=== PATIENT | female | born 1965 | race Caucasian/White ===

== ENCOUNTER 2017-02-20 20:41 | Emergency (ER) | payer BC ==
[2017-02-20 22:26] LABS: Hematocrit 41 % (35-47); Hemoglobin 13.8 g/dl (12.0-16.0); Mean Corpuscular HGB Conc 34 g/dl (31-36); Mean Corpuscular Hemoglobin 30 pg (27-31); Mean Corpuscular Volume 87 fL (80-97); Mean Platelet Volume 11 um3 (7.4-10.4); Red Blood Count 4.66 10^6/ul (4.0-5.4); Red Cell Distribution Width 14 % (10.5-15); White Blood Count 9.1 10^3/ul (3.5-10.8)
[2017-02-20 22:44] LABS: Troponin I 0.01 ng/mL (<0.04)
[2017-02-20 22:47] LABS: BUN/Creatinine Ratio 10.6 (8-20); Calcium 9.8 mg/dL (8.6-10.3); EGFR African American 80.7 (>60); EGFR Non-African American 62.8 (>60); Globulin 3.9 g/dL (2-4); Potassium 3.1 mmol/L (3.5-5.0); Total Bilirubin 0.4 mg/dL (0.2-1.0); Total Protein 7.9 g/dL (6.4-8.9)
[2017-02-20] MEDS ORDERED: Potassium Chlor TAB* 20 MEQ TAB.ER PO ONE (23:03)
[2017-02-20 23:17] VITALS: BP 145/97
--- NOTE | 2017-02-21 04:21 | ED ---
Gigi Thomas Rebecca, scribed for Taylor Burnetteuel on 02/20/17 at 2135 . Complex/Multi-Sys Presentation - HPI Summary HPI Summary: Pt is a 51 y/o F who presents to ED c/o RUE and R foot tingling s/p electric shock. At 2014 tonight while screwing in a light bulb with the R hand and standing in water, the bulb blew, causing her to receive an electric shock. Tingling began immediately after incident and has been constant since onset. Additionally c/o mild CP. Denies palpitations. Sx aggravated and alleviated by nothing. No PMHx PA. - History Of Current Complaint Chief Complaint: EDGeneral Time Seen by Provider: 02/20/17 21:32 Hx Obtained From: Patient Onset/Duration: Sudden Onset, Still Present Timing: Constant Severity Currently: Mild Severity Initially: Mild Location: Pain At: - Chest pain Aggravating Factor(s): Nothing Alleviating Factor(s): Nothing Associated Signs And Symptoms: Positive: Other - RUE and R foot tingling - Allergies/Home Medications Allergies/Adverse Reactions: Allergies Allergy/AdvReac Type Severity Reaction Status Date / Time No Known Allergies Allergy Verified 02/20/17 20:46 PMH/Surg Hx/FS Hx/Imm Hx Endocrine/Hematology History: Denies: Hx Diabetes Cardiovascular History: Reports: Hx Hypertension - ON MEDS Denies: Hx Congestive Heart Failure, Hx Myocardial Infarction, Hx Pacemaker/ ICD History: Denies: Hx Renal Disease Sensory History: Denies: Hx Contacts or Glasses, Hx Hearing Aid Opthamlomology History: Denies: Hx Contacts or Glasses Psychiatric History: Denies: Hx Panic Disorder - Surgical History Surgery Procedure, Year, and Place: cholecystectomy; uterine ablasion Infectious Disease History: Denies: Traveled Outside the [place] in Last 30 Days - Family History Known Family History: Positive: Hypertension - Brother - Social History Alcohol Use: Rare Substance Use Type: Reports: None Smoking Status (MU): Never Smoked Tobacco Review of Systems Positive: Chest Pain - mild CP s/p electric shock. Negative: Palpitations Neurological: Other - RUE and R foot tingling s/p electric shock All Other Systems Reviewed And Are Negative: Yes Physical Exam Triage Information Reviewed: Yes Vital Signs On Initial Exam: Initial Vitals Temp Pulse Resp BP Pulse Ox 98.2 F 89 16 141/100 98 02/20/17 20:46 02/20/17 20:46 02/20/17 20:46 02/20/17 20:46 02/20/17 20:46 Vital Signs Reviewed: Yes Appearance: Positive: Well-Appearing, No Pain Distress Skin: Positive: Warm, Skin Color Reflects Adequate Perfusion, Dry Head/Face: Positive: Normal Head/Face Inspection Eyes: Positive: EOMI, FERDINAND ENT: Positive: Normal ENT inspection Neck: Positive: Supple, Nontender Respiratory/Lung Sounds: Positive: Clear to Auscultation, Breath Sounds Present Cardiovascular: Positive: RRR, Pulses are Symmetrical in both Upper and Lower Extremities Abdomen Description: Positive: Nontender, Soft Bowel Sounds: Positive: Present Musculoskeletal: Positive: Normal, Strength/ROM Intact Neurological: Positive: Normal, Sensory/Motor Intact, Alert, Oriented to Person Place, Time Diagnostics - Vital Signs Vital Signs Temp Pulse Resp BP Pulse Ox 02/20/17 20:46 98.2 F 89 16 141/100 98 - Laboratory Result Diagrams: 02/20/17 22:15 02/20/17 22:15 Lab Statement: Any lab studies that have been ordered have been reviewed, and results considered in the medical decision making process. - Radiology CXR Xray Interpretation: No Acute Changes Radiology Interpretation Completed By: ED Physician - EKG 2201 Cardiac Rate: NL - 80 bpm EKG Rhythm: Sinus Rhythm EKG Interpretation: No acute changes. Re-Evaluation - Re-Evaluation First Eval Re-Evaluation Time: 23:18 Change: Improved Comment: Pt is doing well. Discussed lab and imaging results and D/C plan with pt. Complex Multi-Symp Course/Dx Assessment/Plan: Pt is a 51 y/o F who presents to ED c/o mild CP and RUE and R foot tingling s/p electric shock. At 2015 tonight while screwing in a light bulb with the R hand and standing in water, the bulb blew, causing her to receive an electric shock. Sx began immediately after incident and has been constant since onset. Denies palpitations. No PMHx PA. EKG and CXR reveal no acute changes. She will be D/C to home with Dx of electric shock to right hand. She understands and agrees. Patient medications reviewed this visit. - Diagnoses Provider Diagnoses: Electric shock to right hand Discharge - Discharge Plan Condition: Stable Disposition: HOME Referrals: Bharat Rinaldi MD [Primary Care Provider] - 3 Days The documentation as recorded by the Gigi baca Rebecca accurately reflects the service I personally performed and the decisions made by Vasile martins Emmanuel.
--- NOTE | 2017-02-21 07:26 | RAD ---
INDICATION: Chest pain. COMPARISON: Comparison is made with a prior study from October 28, 2009. TECHNIQUE: A portable view of the chest was obtained. FINDINGS: Cardiac and mediastinal contours appear to be within normal limits. The lungs are clear. No pleural effusion is seen. IMPRESSION: NO EVIDENCE FOR ACUTE DISEASE.
== END 2017-02-20 23:57 | disposition home or self-care (01) ==
LOC: ED 20:41
DX: T75.4XXA Electrocution, initial encounter (principal); R07.9 Chest pain, unspecified; W86.8XXA Exposure to other electric current, initial encounter; Y93.9 Activity, unspecified; Y92.9 Unspecified place or not applicable
CPT/HCPCS: 36415; 71010; 80053; 82550; 84484; 85025; 93005; 99283; A9270-GY

== ENCOUNTER 2019-02-19 00:49 | Emergency (ER) | payer BC ==
[2019-02-19 04:33] VITALS: BP 146/96
--- NOTE | 2019-02-19 07:04 | ED ---
Bite Injury/Animal - HPI Summary HPI Summary: 53 year old F presents to [facility] with a chief complaint of concern of a bat bite since this morning (02/18/19). Patient reports she saw bats in her house 02/15/19 morning at 0500 after which she tried to turn the lights on to deter them away but it did not stop them from entering her house. Patient does not know if she was touched by the bat or not but as far as she is concerned she does not think she has been. However, she is concerned that she was bitten as she feels a hotness in her left leg during her sleep. Patient lives alone in [facility]. Symptoms aggravated by nothing. Symptoms alleviated by nothing. - History of Current Complaint Chief Complaint: EDAnimalBite Stated Complaint: POSS BITTEN BY BAT PER PT Hx Obtained From: Patient Onset of Injury: Still Present Type of Bite: Wild Animal Pain Intensity: 0 Pain Scale Used: 0-10 Numeric Aggravating Factor(s): Nothing Alleviating Factor(s): Nothing - Allergies/Home Medications Allergies/Adverse Reactions: Allergies Allergy/AdvReac Type Severity Reaction Status Date / Time No Known Allergies Allergy Verified 02/19/19 00:59 PMH/Surg Hx/FS Hx/Imm Hx Endocrine/Hematology History: Denies: Hx Diabetes Cardiovascular History: Reports: Hx Hypertension - ON MEDS Denies: Hx Congestive Heart Failure, Hx Myocardial Infarction, Hx Pacemaker/ ICD History: Denies: Hx Renal Disease Sensory History: Denies: Hx Contacts or Glasses, Hx Hearing Aid Opthamlomology History: Denies: Hx Contacts or Glasses Psychiatric History: Denies: Hx Panic Disorder - Cancer History Hx Chemotherapy: No Hx Radiation Therapy: No - Surgical History Surgery Procedure, Year, and Place: cholecystectomy and ERCP; uterine ablasion Infectious Disease History: No Infectious Disease History: Denies: Traveled Outside the in Last 30 Days - Family History Known Family History: Positive: Hypertension - Brother - Social History Alcohol Use: Rare Substance Use Type: Reports: None Smoking Status (MU): Never Smoked Tobacco Review of Systems Negative: Fever Positive: Other - (-): abrasion All Other Systems Reviewed And Are Negative: Yes Physical Exam - Summary Physical Exam Summary: VITAL SIGNS: Reviewed. GENERAL: Patient is a well-developed and nourished FEMALE who is lying comfortable in the stretcher. Patient is not in any acute respiratory distress. HEAD AND FACE: No signs of trauma. No ecchymosis, hematomas or skull depressions. No sinus tenderness. EYES: PERRLA, EOMI x 2, No injected conjunctiva, no nystagmus. EARS: Hearing grossly intact. Ear canals and tympanic membranes are within normal limits. MOUTH: Oropharynx within normal limits. NECK: Supple, trachea is midline, no adenopathy, no JVD, no carotid bruit, no c- spine tenderness, neck with full ROM CHEST: Symmetric, no tenderness at palpation LUNGS: Clear to auscultation bilaterally. No wheezing or crackles. CVS: Regular rate and rhythm, S1 and S2 present, no murmurs or gallops appreciated. ABDOMEN: Soft, non-tender. No signs of distention. No rebound no guarding, and no masses palpated. Bowel sounds are normal. EXTREMITIES: FROM in all major joints, no edema, no cyanosis or clubbing. NEURO: Alert and oriented x 3. No acute neurological deficits. Speech is normal and follows commands. SKIN: Dry and warm Triage Information Reviewed: Yes Vital Signs On Initial Exam: Initial Vitals Temp Pulse Resp BP Pulse Ox 97.9 F 99 20 156/107 98 02/19/19 00:53 02/19/19 00:53 02/19/19 00:53 02/19/19 00:53 02/19/19 00:53 Vital Signs Reviewed: Yes Diagnostics - Vital Signs Vital Signs Temp Pulse Resp BP Pulse Ox 02/19/19 03:30 98.2 F 90 16 146/96 96 02/19/19 00:53 97.9 F 99 20 156/107 98 - Laboratory Lab Statement: Any lab studies that have been ordered have been reviewed, and results considered in the medical decision making process. Bite Injury Course/Dx - Course Course Of Treatment: 53 year old F presents to [facility] with a chief complaint of concern of a bat bite since this morning (02/18/19). Patient reports she saw bats in her house 02/15/19 morning at 0500 after which she tried to turn the lights on to deter them away but it did not stop them from entering her house. Patient does not know if she was touched by the bat or not but as far as she is concerned she does not think she has been. However, she is concerned that she was bitten as she feels a hotness in her left leg during her sleep. Patient doesnt have any abrasion or cuts. Physician discussed discharge with patient who agrees with discharge. Patient was advised to meet with the health department regarding the management of the rabies vaccine. Patient understands. - Diagnoses Provider Diagnosis: Exposure to bat without known bite Discharge - Sign-Out/Discharge Documenting (check all that apply): Patient Departure - discharge Patient Received Moderate/Deep Sedation with Procedure: No - Discharge Plan Condition: Stable Disposition: HOME Patient Education Materials: Animal Bite (ED) Referrals: Bharat Rinaldi MD [Primary Care Provider] - - Attestation Statements Document Initiated by Scribe: Yes Documenting Scribe: Essie Markham Provider For Whom Odellibe is Documenting (Include Credential): Kait Luong MD Scribe Attestation: Floyd Thomas Alison Kim, scribed for Kait Luong MD on 02/19/19 at 0710. Status of Scribe Document: Ready
== END 2019-02-19 03:30 | disposition home or self-care (01) ==
LOC: ED 00:49
DX: Z20.3 Contact with and (suspected) exposure to rabies (principal); X58.XXXA Exposure to other specified factors, initial encounter; Y92.009 Unspecified place in unspecified non-institutional (private) residence as the place of occurrence of the external cause; I10 Essential (primary) hypertension; Z79.899 Other long term (current) drug therapy
CPT/HCPCS: 99281

== ENCOUNTER 2019-02-19 12:00 | Emergency (ER) | payer BC ==
[2019-02-19] MEDS ORDERED: Rabies VIRUS VACCINE (Imovax)* 2.5 UNIT/ML 1 ML IM ONE (12:25)
[2019-02-19] MEDS ORDERED: Rabies Immune Globulin 10 ML* 150 UNIT/ML VIAL IM ONE (13:06)
[2019-02-19] MEDS ORDERED: Tetan/Diph/Pertus SYR(Tdap)* 0.5 ML SYR(BOOSTRIX) use SYR IM ONE (13:07)
--- NOTE | 2019-02-19 13:10 | ED ---
Bite Injury/Animal - HPI Summary HPI Summary: 53 year old female presents with bat exposure on . She states she fell a sleep and woke up with the bat in the wound. Unsure if got bit but no known lesions. She has no medical conditions. Unsure of last tetanus is. She called and discussed with health department and told her to get vaccinated here. - History of Current Complaint Chief Complaint: EDAnimalBite Stated Complaint: BAT BITE PER PT Time Seen by Provider: 02/19/19 12:54 Pain Intensity: 3 - Allergies/Home Medications Allergies/Adverse Reactions: Allergies Allergy/AdvReac Type Severity Reaction Status Date / Time No Known Allergies Allergy Verified 02/19/19 00:59 PMH/Surg Hx/FS Hx/Imm Hx Endocrine/Hematology History: Denies: Hx Diabetes Cardiovascular History: Reports: Hx Hypertension - ON MEDS Denies: Hx Congestive Heart Failure, Hx Myocardial Infarction, Hx Pacemaker/ ICD History: Denies: Hx Renal Disease Sensory History: Denies: Hx Contacts or Glasses, Hx Hearing Aid Opthamlomology History: Denies: Hx Contacts or Glasses Psychiatric History: Denies: Hx Panic Disorder - Cancer History Hx Chemotherapy: No Hx Radiation Therapy: No - Surgical History Surgery Procedure, Year, and Place: cholecystectomy and ERCP; uterine ablasion Infectious Disease History: No Infectious Disease History: Denies: Traveled Outside the [place] in Last 30 Days - Family History Known Family History: Positive: Hypertension - Brother - Social History Alcohol Use: Rare Substance Use Type: Reports: None Smoking Status (MU): Never Smoked Tobacco Review of Systems Negative: Fever Negative: Chest Pain Negative: Shortness Of Breath Positive: Other - no bite, bat exposure All Other Systems Reviewed And Are Negative: Yes Physical Exam Triage Information Reviewed: Yes Vital Signs On Initial Exam: Initial Vitals Temp Pulse Resp BP Pulse Ox 98.3 F 96 18 126/93 96 02/19/19 12:02 02/19/19 12:02 02/19/19 12:02 02/19/19 12:02 02/19/19 12:02 Vital Signs Reviewed: Yes Appearance: Positive: Well-Appearing Skin: Positive: Warm, Dry, Other - no bite noted Head/Face: Positive: Normal Head/Face Inspection Eyes: Positive: Normal, Conjunctiva Clear ENT: Positive: Pharynx normal Respiratory/Lung Sounds: Positive: Clear to Auscultation, Breath Sounds Present Cardiovascular: Positive: Normal, RRR Musculoskeletal: Positive: Normal Neurological: Positive: Normal Psychiatric: Positive: Normal Diagnostics - Vital Signs Vital Signs Temp Pulse Resp BP Pulse Ox 02/19/19 12:02 98.3 F 96 18 126/93 96 - Laboratory Lab Statement: Any lab studies that have been ordered have been reviewed, and results considered in the medical decision making process. Bite Injury Course/Dx - Course Course Of Treatment: 53 year old female presents with bat exposure on . She states she fell a sleep and woke up with the bat in the wound. Unsure if got bit but no known lesions. She has no medical conditions. Unsure of last tetanus is. She called and discussed with health department and told her to get vaccinated here. On exam no bite noted. gave tetanus, immunogloblin and vaccine. Told follow-up with health department. Patient understands and agrees plan. - Diagnoses Provider Diagnosis: Exposure to bat without known bite Discharge - Sign-Out/Discharge Documenting (check all that apply): Patient Departure Patient Received Moderate/Deep Sedation with Procedure: No - Discharge Plan Condition: Good Disposition: HOME Patient Education Materials: Rabies Vaccine (ED) Referrals: Bharat Rinaldi MD [Primary Care Provider] - Additional Instructions: follow up with health department at day 3, 7, 14 Return to ED if develop any new or worsening symptoms - Billing Disposition and Condition Condition: GOOD Disposition: Home
[2019-02-19 14:00] VITALS: BP 164/111
[2019-02-19] MEDS ORDERED: Rabies Immune Globulin/PF 1ML* 1 ML/300 UNITS VIAL IM ONE (14:00)
== END 2019-02-19 14:00 | disposition home or self-care (01) ==
LOC: ED 12:00
DX: Z20.3 Contact with and (suspected) exposure to rabies (principal); Z23 Encounter for immunization; I10 Essential (primary) hypertension; X58.XXXA Exposure to other specified factors, initial encounter; Y92.9 Unspecified place or not applicable
CPT/HCPCS: 90375; 90471; 90715; 96372; 99282

== ENCOUNTER 2019-02-21 06:59 | Emergency (ER) | payer BC ==
[2019-02-21 08:49] LABS: Rapid Strep Molecular Negative (Negative)
--- NOTE | 2019-02-21 10:13 | ED ---
Progress - Progress Note Progress Note: Seeing patient at request of REJI Griggs. This patient is a 53 year old female presenting to [facility] with a chief complaint of possible bat bite. The patient was here for the same reason one week ago, and received the post- exposure prophylaxis. The patient complains of erythema in her eyes. The patient woke up to a bat in her room, then saw another one when she came home that day and had it fly out of the house. The patient talked to the health department on 02/13/19 and was approved for the prophylaxis by the health department. She reports tingling in her legs, sore throat, cough. Physical Exam - Summary Physical Exam Summary: Appearance: Ill-appearing, moderate pain distress, well-nourished Skin: Warm, color reflects adequate perfusion, dry Head: Normal Head/Face inspection, atraumatic Eyes: Conjunctiva clear ENT: Normal inspection Neck: Supple, no nodes, no JVD Respiratory: Lungs clear, normal breath sounds, no respiratory distress Cardio: RRR, No murmur, pulses normal, brisk capillary refill Abdomen: Soft, nontender Bowel sounds: Present Musculoskeletal: Strength Intact/ROM intact, no calf tenderness, no edema. Psychological: Normal Neuro: Alert, muscle tone normal, no focal deficit Triage Information Reviewed: Yes Vital Signs On Initial Exam: Initial Vitals Temp Pulse Resp BP Pulse Ox 97.8 F 116 16 151/116 96 02/21/19 07:04 02/21/19 07:04 02/21/19 07:04 02/21/19 07:04 02/21/19 07:04 Vital Signs Reviewed: Yes Course/Dx - Course Course Of Treatment: Seeing patient at request of REJI Griggs. This patient is a 53 year old female presenting to [facility] with a chief complaint of possible bat bite. The patient was here for the same reason one week ago, and received the post-exposure prophylaxis. The patient complains of erythema in her eyes. The patient woke up to a bat in her room, then saw another one when she came home that day and had it fly out of the house. The patient talked to the health department on 02/13/19 and was approved for the prophylaxis by the health department. She reports tingling in her legs, sore throat, cough, erythema in her eyes. ED Provider instructed PA to give patient anti- inflammatory eye drops to treat viral conjuctivitis. - Diagnoses Provider Diagnoses: Need for post exposure prophylaxis for rabies, Viral syndrome, Viral conjunctivitis Discharge - Discharge Plan Condition: Good Disposition: HOME Patient Education Materials: Upper Respiratory Infection (ED), Rabies (ED) Referrals: Bharat Rinaldi MD [Primary Care Provider] - Additional Instructions: Follow up with [facility] for schedule rabies vaccination tomorrow, 02/22/19 , at 7:00am Can try over the counter eye drops for irritation: Zaditor as directed Return to ER if symptoms change or worsen - Attestation Statements Document Initiated by Scribe: Yes Documenting Scribe: Cameron Lopez Provider For Whom Scribe is Documenting (Include Credential): Thuy Knott MD Scribe Attestation: Cameron Thomas, scribed for Thuy Knott MD on 02/21/19 at 1048. Status of Scribe Document: Ready
[2019-02-21] MEDS ORDERED: Fluorescein Sodium TOPICAL* 1 MG TEST STRIP OPHTHALMIC ONE (10:27)
[2019-02-21 11:08] VITALS: BP 132/94
--- NOTE | 2019-02-21 17:16 | ED ---
Complex/Multi-Sys Presentation - HPI Summary HPI Summary: Pt. is a 53 y.o female who presents to the ER for re-evaluation after a possible exposure. Pt. states on Saturday, 6 days ago, she discovered bats in her house. Pt. felt some irritation to her left lower leg and was concerned she was bit in her sleep. Pt. was seen in the ER 02/19 and started on rabies prophylaxis per health department. Pt. states she is concerned she has a rabies prodrome and has not been feeling well all week. Pt. c/o eye irritation/redness and a sore throat. No other past hx. Sxs are mild in severity. No current modifying factors. - History Of Current Complaint Chief Complaint: EDAnimalBite Time Seen by Provider: 02/21/19 07:38 Hx Obtained From: Patient - Allergies/Home Medications Allergies/Adverse Reactions: Allergies Allergy/AdvReac Type Severity Reaction Status Date / Time No Known Allergies Allergy Verified 02/21/19 07:07 Home Medications: Home Medications Omeprazole 40 mg PO DAILY 02/21/19 [History Confirmed 02/21/19] PMH/Surg Hx/FS Hx/Imm Hx Previously Healthy: Yes Endocrine/Hematology History: Denies: Hx Diabetes Cardiovascular History: Reports: Hx Hypertension - ON MEDS Denies: Hx Congestive Heart Failure, Hx Myocardial Infarction, Hx Pacemaker/ ICD History: Denies: Hx Renal Disease Sensory History: Denies: Hx Contacts or Glasses, Hx Hearing Aid Opthamlomology History: Denies: Hx Contacts or Glasses Psychiatric History: Denies: Hx Panic Disorder - Cancer History Hx Chemotherapy: No Hx Radiation Therapy: No - Surgical History Surgery Procedure, Year, and Place: cholecystectomy and ERCP; uterine ablasion Infectious Disease History: No Infectious Disease History: Denies: Traveled Outside the [place] in Last 30 Days - Family History Known Family History: Positive: Hypertension - Brother, Non-Contributory - Social History Occupation: Employed Full-time Lives: Alone Alcohol Use: Occasionally Substance Use Type: Reports: None Smoking Status (MU): Never Smoked Tobacco Review of Systems Constitutional: Negative Negative: Fever, Chills Positive: Drainage, Erythema Positive: Sore Throat Cardiovascular: Negative Negative: Palpitations, Chest Pain Positive: Cough. Negative: Shortness Of Breath Gastrointestinal: Negative Genitourinary: Negative Positive: Other - tingling to left lower leg Skin: Negative Neurological: Negative All Other Systems Reviewed And Are Negative: Yes Physical Exam - Summary Physical Exam Summary: Appearance: Ill-appearing, moderate pain distress, well-nourished Skin: Warm, color reflects adequate perfusion, dry Head: Normal Head/Face inspection, atraumatic Eyes: Conjunctiva clear ENT: Normal inspection Neck: Supple, no nodes, no JVD Respiratory: Lungs clear, normal breath sounds, no respiratory distress Cardio: RRR, No murmur, pulses normal, brisk capillary refill Abdomen: Soft, nontender Bowel sounds: Present Musculoskeletal: Strength Intact/ROM intact, no calf tenderness, no edema. Psychological: Normal Neuro: Alert, muscle tone normal, no focal deficit Triage Information Reviewed: Yes Vital Signs On Initial Exam: Initial Vitals Temp Pulse Resp BP Pulse Ox 97.8 F 116 16 151/116 96 02/21/19 07:04 02/21/19 07:04 02/21/19 07:04 02/21/19 07:04 02/21/19 07:04 Vital Signs Reviewed: Yes Appearance: Positive: Well-Appearing - Pt. sitting on bed. Anxious. Skin: Positive: Warm, Dry Head/Face: Positive: Normal Head/Face Inspection Eyes: Positive: Normal, EOMI, FERDINAND, Conjunctiva Clear. Negative: Discharge ENT: Positive: TMs normal, Other - Mild erythema to oral pharynx without tonsilar edema or exudates. Neck: Positive: Supple Respiratory/Lung Sounds: Positive: Clear to Auscultation, Breath Sounds Present. Negative: Rales, Rhonchi, Wheezes Cardiovascular: Positive: Normal, RRR Musculoskeletal: Positive: Normal, Strength/ROM Intact, Other - No wounds, erythema, or edema to left lower leg. Neurological: Positive: Normal, CN Intact II-III Psychiatric: Positive: Affect/Mood Appropriate Diagnostics - Vital Signs Vital Signs Temp Pulse Resp BP Pulse Ox 02/21/19 11:07 97.4 F 83 16 132/94 96 02/21/19 07:04 97.8 F 116 16 151/116 96 - Laboratory Lab Results: Lab Results 02/21/19 Range/Units 08:34 Group A Strep Rapid Negative (Negative) Lab Statement: Any lab studies that have been ordered have been reviewed, and results considered in the medical decision making process. Complex Multi-Symp Course/Dx Course Of Treatment: Pt. presenting with concerns she has rabies. Exam is unremarkable. Pt. examined by Dr. Knott as well who recommended rapid strep which was negative and examing eyes with fluorescein stain and guerrero lamp. Exam showed punctate update to right eye that looks like dry eyes. No FB noted. Pt. feeling better after reassurance. She has apt. with [facility] tomorrow for day 3 of rabies vaccine. Will return to ER if symptoms change or worsn. - Diagnoses Provider Diagnoses: Need for post exposure prophylaxis for rabies, Viral syndrome, Viral conjunctivitis Discharge - Sign-Out/Discharge Documenting (check all that apply): Patient Departure Patient Received Moderate/Deep Sedation with Procedure: No - Discharge Plan Condition: Good Disposition: HOME Patient Education Materials: Upper Respiratory Infection (ED), Rabies (ED) Referrals: Bharat Rinaldi MD [Primary Care Provider] - Additional Instructions: Follow up with [facility] for schedule rabies vaccination tomorrow, 02/22/19 , at 7:00am Can try over the counter eye drops for irritation: Zaditor as directed Return to ER if symptoms change or worsen - Billing Disposition and Condition Condition: GOOD Disposition: Home
== END 2019-02-21 11:07 | disposition home or self-care (01) ==
LOC: ED 06:59
DX: Z20.3 Contact with and (suspected) exposure to rabies (principal); B34.9 Viral infection, unspecified; B30.9 Viral conjunctivitis, unspecified; I10 Essential (primary) hypertension
CPT/HCPCS: 87651; 99282; A9270-GY

== ENCOUNTER 2019-02-22 07:08 | Emergency (ER) | payer BC ==
[2019-02-22] MEDS ORDERED: Rabies VIRUS VACCINE (RabAvert)* 2.5 UNITS VIAL IM ONE (07:22)
[2019-02-22 07:25] VITALS: BP 163/100
--- NOTE | 2019-02-22 07:30 | UC ---
General HPI - HPI Summary HPI Summary: Patient is here for further medical vaccine. Patient has received the 2 previous vaccines without any complications. She has no other complaints. - History of Current Complaint Chief Complaint: UCGeneralIllness Stated Complaint: RABIES Time Seen by Provider: 02/22/19 07:21 Hx Obtained From: Patient Pain Intensity: 0 - Allergy/Home Medications Allergies/Adverse Reactions: Allergies Allergy/AdvReac Type Severity Reaction Status Date / Time No Known Allergies Allergy Verified 02/21/19 07:07 PMH/Surg Hx/FS Hx/Imm Hx Previously Healthy: Yes - Surgical History Surgical History: Yes Surgery Procedure, Year, and Place: cholecystectomy and ERCP; uterine ablasion - Family History Known Family History: Positive: Hypertension - Brother, Non-Contributory - Social History Alcohol Use: Occasionally Substance Use Type: None Smoking Status (MU): Never Smoked Tobacco - Immunization History Most Recent Tetanus Shot: within the last 8 years Review of Systems All Other Systems Reviewed And Are Negative: Yes Constitutional: Positive: Negative Skin: Positive: Negative Eyes: Positive: Negative ENT: Positive: Negative Respiratory: Positive: Negative Cardiovascular: Positive: Negative Gastrointestinal: Positive: Negative Genitourinary: Positive: Negative Motor: Positive: Negative Neurovascular: Positive: Negative Musculoskeletal: Positive: Negative Neurological: Positive: Negative Psychological: Positive: Negative Is Patient Immunocompromised?: No Physical Exam - Summary Physical Exam Summary: VITAL SIGNS: Reviewed. GENERAL: Patient is a well developed and nourished female who is lying comfortably in the stretcher. Patient is not in any acute respiratory distress. HEAD AND FACE: No signs of trauma. No ecchymosis, hematomas or skull depressions. No sinus tenderness. EYES: PERRLA, EOMI x 2, No injected conjunctiva, no nystagmus. EARS: Hearing grossly intact. Ear canals and tympanic membranes are within normal limits. MOUTH: Oropharynx within normal limits. NECK: Supple, trachea is midline, no adenopathy, no JVD, no carotid bruit, no c- spine tenderness, neck with full ROM. CHEST: Symmetric, no tenderness at palpation LUNGS: Clear to auscultation bilaterally. No wheezing or crackles. CVS: Regular rate and rhythm, S1 and S2 present, no murmurs or gallops appreciated. ABDOMEN: Soft, non-tender. No signs of distention. No rebound no guarding, and no masses palpated. Bowel sounds are normal. EXTREMITIES: FROM in all major joints, no edema, no cyanosis or clubbing. NEURO: Alert and oriented x 3. No acute neurological deficits. Speech is normal and follows commands. SKIN: Dry and warm Triage Information Reviewed: Yes Appearance: Well-Appearing Vital Signs: Initial Vital Signs Temp 98.3 F 02/22/19 07:20 Pulse 70 02/22/19 07:20 Resp 16 02/22/19 07:20 BP 163/100 02/22/19 07:20 Pulse Ox 96 02/22/19 07:20 Vital Signs Reviewed: Yes Course/Dx - Course Course Of Treatment: Patient received the third rabies vaccine. No complications. - Diagnoses Provider Diagnosis: Rabies, need for prophylactic vaccination against Discharge - Sign-Out/Discharge Documenting (check all that apply): Patient Departure All imaging exams completed and their final reports reviewed: No Studies - Discharge Plan Condition: Stable Disposition: HOME Patient Education Materials: Rabies Vaccine (By injection) Referrals: Bharat Rinaldi MD [Primary Care Provider] - Additional Instructions: Patient is discharged home with follow-up with PCP. - Billing Disposition and Condition Condition: STABLE Disposition: Home
== END 2019-02-22 08:06 | disposition home or self-care (01) ==
LOC: UCEAST 07:08
DX: Z29.14 Encounter for prophylactic rabies immune globulin (principal)
CPT/HCPCS: 90471; 90675; 99211; G0010; G0463

== ENCOUNTER 2019-02-22 16:22 | Emergency (ER) | payer BC ==
--- NOTE | 2019-02-22 18:17 | ED ---
Lower Extremity - HPI Summary HPI Summary: Pt is a 53 y/o F presenting to the ED with a chief complaint of LLE pain. She states that she has been here recently for a potential rabies exposure from bats in her home, and she is currently expressing concern about a potential prior rabies exposure. She also states that the myalgia moved up from the L calf to her L thigh. Per triage note, the pt could also believe that she is not responding to treatment, and she feels fatigued. The pt's friend who comes to the ED with her is more concerned about the pt's anxiety than anything else. She is requesting that the patient have something for anxiety to cope with this until she finishes her rabies prophylaxis tx. Home Medications Medication Instructions Recorded Confirmed Type Spironolactone/HCTZ 25-25 MG* 1 tab PO DAILY 03/30/16 02/22/19 History [Aldactazide 25-25*] Isradipine 2.5 mg PO DAILY MDD 2.5MG 04/25/18 02/22/19 History Levothyroxine TAB* [Synthroid TAB*] 25 mcg PO DAILY MDD 1 04/25/18 02/22/19 History Omeprazole 40 mg PO DAILY MDD 1 02/21/19 02/22/19 History - History of Current Complaint Chief Complaint: EDGeneral Stated Complaint: BAT EXPOSURE PER PT Time Seen by Provider: 02/22/19 17:45 Hx Obtained From: Patient Mechanism Of Injury: Other - potential rabies exposure Onset of Pain: Immediate Onset/Duration: Still Present Severity Initially: Moderate Severity Currently: Severe Pain Intensity: 10 Pain Scale Used: 0-10 Numeric Timing: Constant, Lasting Days Location: Is Diffuse - LLE Character Of Pain: Throbbing, Burning Associated Signs And Symptoms: Positive: Negative Aggravating Factor(s): Nothing Alleviating Factor(s): Nothing Able to Bear Weight: Yes - Allergies/Home Medications Allergies/Adverse Reactions: Allergies Allergy/AdvReac Type Severity Reaction Status Date / Time No Known Allergies Allergy Verified 02/21/19 07:07 PMH/Surg Hx/FS Hx/Imm Hx Previously Healthy: Yes Endocrine/Hematology History: Reports: Hx Thyroid Disease Denies: Hx Diabetes Cardiovascular History: Reports: Hx Hypertension - ON MEDS Denies: Hx Congestive Heart Failure, Hx Myocardial Infarction, Hx Pacemaker/ ICD History: Denies: Hx Renal Disease Sensory History: Denies: Hx Contacts or Glasses, Hx Hearing Aid Opthamlomology History: Denies: Hx Contacts or Glasses Psychiatric History: Denies: Hx Panic Disorder - Cancer History Hx Chemotherapy: No Hx Radiation Therapy: No - Surgical History Surgery Procedure, Year, and Place: cholecystectomy and ERCP; uterine ablasion - Immunization History Immunizations Up to Date: Yes Infectious Disease History: No Infectious Disease History: Denies: Traveled Outside the [place] in Last 30 Days - Family History Known Family History: Positive: Hypertension - Brother - Social History Alcohol Use: Occasionally Hx Substance Use: No Substance Use Type: Reports: None Hx Tobacco Use: No Smoking Status (MU): Never Smoked Tobacco Review of Systems Positive: Fatigue Positive: Myalgia All Other Systems Reviewed And Are Negative: Yes Physical Exam - Summary Physical Exam Summary: Appearance: Ill-appearing, moderate pain distress, well-nourished, hypertensive Skin: Warm, color reflects adequate perfusion, dry Head: Normal Head/Face inspection, atraumatic Eyes: Conjunctiva clear ENT: Normal inspection Neck: Supple, no nodes, no JVD Respiratory: Lungs clear, normal breath sounds, no respiratory distress Cardio: RRR, No murmur, pulses normal, brisk capillary refill Abdomen: Soft, nontender Bowel sounds: Present Musculoskeletal: Strength Intact/ROM intact, no calf tenderness, no edema. Psychological: Normal Neuro: Alert, muscle tone normal, no focal deficit Triage Information Reviewed: Yes Vital Signs On Initial Exam: Initial Vitals Temp Pulse Resp BP Pulse Ox 98.0 F 95 16 183/114 96 02/22/19 16:28 02/22/19 16:28 02/22/19 16:28 02/22/19 16:28 02/22/19 16:28 Vital Signs Reviewed: Yes Diagnostics - Vital Signs Vital Signs Temp Pulse Resp BP Pulse Ox 02/22/19 16:28 98.0 F 95 16 183/114 96 - Laboratory Lab Statement: Any lab studies that have been ordered have been reviewed, and results considered in the medical decision making process. Lower Extremity Course/Dx - Course Course Of Treatment: Pt is a 53 y/o F presenting to the ED with a chief complaint of LLE pain. She is currently expressing concern about a potential prior rabies exposure. She also states that her myalgia moved up from the L calf to her L thigh. Per triage note, the pt could also believe that she is not responding to treatment, and she feels fatigued. The pt's friend who comes to the ED with her is more concerned about the pt's anxiety than anything else. She is requesting that the patient have something for anxiety to cope with this until she finishes her rabies prophylaxis tx. Pt's physical exam is nml. She will be sent home with dx of myalgias. She is stable and agreeable with this plan. - Diagnoses Provider Diagnoses: Myalgia Discharge - Sign-Out/Discharge Documenting (check all that apply): Patient Departure Patient Received Moderate/Deep Sedation with Procedure: No - Discharge Plan Condition: Stable Disposition: HOME Prescriptions: hydrOXYzine HCL TAB* [Atarax TAB 50 MG *] 50 mg PO QID PRN #30 tab PRN Reason: Itching Patient Education Materials: Musculoskeletal Pain (ED) Forms: *Work Release Referrals: Bharat Rinaldi MD [Primary Care Provider] - 2 Days Additional Instructions: Return to the ER for any new or worsening symptoms. - Billing Disposition and Condition Condition: STABLE Disposition: Home - Attestation Statements Document Initiated by Odellibe: Yes Documenting Scribe: Fabi Peter Provider For Whom Aarti is Documenting (Include Credential): Dr. Thuy Knott MD. Scribe Attestation: Fabi Thomas scribed for Dr. Thuy Knott MD. on 02/22/19 at 2128. Status of Scribe Document: Viewed
[2019-02-22] MEDS ORDERED: LORazepam TAB(*) 1 MG PO ONE (18:28)
[2019-02-22 18:54] VITALS: BP 157/97
== END 2019-02-22 18:52 | disposition home or self-care (01) ==
LOC: ED 16:22
DX: M79.10 Myalgia, unspecified site (principal); E07.9 Disorder of thyroid, unspecified; I10 Essential (primary) hypertension; Z79.899 Other long term (current) drug therapy
CPT/HCPCS: 99282; A9270-GY

== ENCOUNTER 2019-02-26 07:03 | Emergency (ER) | payer BC ==
[2019-02-26 07:16] VITALS: BP 150/100
[2019-02-26] MEDS ORDERED: Rabies VIRUS VACCINE (RabAvert)* 2.5 UNITS VIAL IM ONE (07:19)
--- NOTE | 2019-02-26 07:25 | UC ---
Skin Complaint HPI - HPI Summary HPI Summary: 53 y/o female here for her 3rd Rabies vaccination after finding a bat in her house last week. c/o tingling of her left leg - History of Current Complaint Chief Complaint: UCBiteInjury Time Seen by Provider: 02/26/19 07:19 Stated Complaint: RABIES Hx Obtained From: Patient Hx Last Menstrual Period: doesn't get - uterine ablasion "years ago" ?: No Onset/Duration: Sudden Onset, Lasting Weeks - 1 Timing: Constant Onset Severity: Mild Current Severity: None Pain Intensity: 0 Associated Signs & Symptoms: Positive: Negative - Allergy/Home Medications Allergies/Adverse Reactions: Allergies Allergy/AdvReac Type Severity Reaction Status Date / Time No Known Allergies Allergy Verified 02/26/19 07:16 PMH/Surg Hx/FS Hx/Imm Hx Previously Healthy: Yes - Surgical History Surgical History: Yes Surgery Procedure, Year, and Place: cholecystectomy and ERCP; uterine ablasion - Family History Known Family History: Positive: Hypertension - Brother - Social History Alcohol Use: Occasionally Substance Use Type: None Smoking Status (MU): Never Smoked Tobacco - Immunization History Most Recent Tetanus Shot: within the last 8 years Review of Systems All Other Systems Reviewed And Are Negative: Yes Is Patient Immunocompromised?: No Physical Exam Triage Information Reviewed: Yes Appearance: Well-Appearing, No Pain Distress, Well-Nourished Vital Signs: Initial Vital Signs Temp 97.7 F 02/26/19 07:11 Pulse 71 02/26/19 07:11 Resp 14 02/26/19 07:11 BP 150/100 02/26/19 07:11 Pulse Ox 97 02/26/19 07:11 Vital Signs Reviewed: Yes Eye Exam: Normal Eyes: Positive: Conjunctiva Clear ENT Exam: Normal Neck exam: Normal Neck: Positive: Supple Respiratory: Positive: Chest non-tender, Lungs clear, Normal breath sounds Cardiovascular: Positive: RRR, No Murmur, Pulses Normal Skin Exam: Normal Course/Dx - Diagnoses Provider Diagnosis: Need for rabies vaccination Discharge - Sign-Out/Discharge Documenting (check all that apply): Patient Departure All imaging exams completed and their final reports reviewed: No Studies - Discharge Plan Condition: Stable Disposition: HOME Referrals: Bharat Rinaldi MD [Primary Care Provider] - - Billing Disposition and Condition Condition: STABLE Disposition: Home
== END 2019-02-26 07:43 | disposition home or self-care (01) ==
LOC: UCEAST 07:03
DX: Z29.14 Encounter for prophylactic rabies immune globulin (principal)
CPT/HCPCS: 90471; 90675; 99211; G0463

== ENCOUNTER 2019-03-05 07:15 | Emergency (ER) | payer BC ==
--- OUTSIDE RECORDS SUMMARY | 2019-03-05 07:21 | XMS REPORT | Continuity of Care Document ---
:1965 External Reference #:[id number] Author Name Ashley Rodriguez Care Team Providers Name Role Phone Bharat Rinaldi MD Primary Care Physician Unavailable Payers Date Identification Numbers Payment Provider Subscriber Effective: 2012 Policy Number: [id number] [employer] Earnestine Lopez Expires: 2013 PayID: [id number] [address] [address] [place] [address] Effective: 2016 Policy Number: [id number] [facility] Earnestine Terarzas Jessica PayID: [id number] [address] [place] [address] Problems Active Problems Provider Date Rheumatoid arthritis Reggie Ramírez M.D. Onset: 05/27/2012 Chronic pain syndrome Reggie Ramírez M.D. Onset: 05/27/2012 Taking medication Reggie Ramírez M.D. Onset: 05/27/2012 Taking medication HORTENCIA Lewis Onset: 08/12/2015 Obstructive sleep apnea syndrome Rashmi Kirkland DNP, RN, DRYER OPERATOR- Onset: Family History Date Family Member(s) Observation Comments General Heart Disease General Multiple Sclerosis (MS) Mom at age 43 of MS Father - Alive and well Father Embolism Mother due to Choking accident () Mother Multiple Sclerosis (MS) Siblings 2 1 full brother and 1 half sister Social History Type Date Description Comments Sex Unknown Marital Status Single Lives With Alone Lives With Son Occupation counselor Work Status Currently Working Tobacco Use Start: Unknown Never Smoked Cigarettes Smoking Status Reviewed: 05/23/18 Never Smoked Cigarettes ETOH Use Occasionally consumes alcohol Tobacco Use Start: Unknown Patient has never smoked Recreational Drug Use Denies Drug Use Exercise Type/Frequency Exercises rarely Allergies, Adverse Reactions, Alerts Description No Known Drug Allergies Medications Active Medications SIG Qnty Indications Ordering Provider Date Isradipine 1 po qd Bharat Rinaldi MD 2.5mg Capsules Spironolactone/Hydrochlo 1 po qd Bharat Rinaldi MD rothiazide 25-25mg Tablets Levothyroxine Sodium 1 by mouth Unknown 25mcg every day Tablets Omeprazole one cap bid Bharat Rinaldi MD 40mg Capsules DR History Medications Plaquenil Take One Tablet By 42tabs Z79.899 Kristopher Medina, 09/22/2015 - 200mg Mouth Every Day For M.D. 09/24/2016 Tablets 1 Week Then 2 Daily Thereafter Enbrel Sureclick 50mg sq every week 4units 714.0 Zsofishwetha Barrera, 2010 - DRYER OPERATOR 10/03/2014 50mg/ml Solution V58.69 Enbrel 1 subcutaneously 4units Reggie Ramírez, 12/07/2010 - 50mg/ml Solution once weekly M.D. 12/08/2010 Amlodipine Besylate 1 po qd 30tabs Unknown - 10mg Tablets 09/24/2016 Hydrochlorothiazide 1 po qd 90tabs Unknown - 25mg Tablets 11/09/2013 Hydrochlorothiazide 1 by mouth every day 90tabs Unknown - 25mg Tablets 09/24/2016 Omeprazole 1 tab po qd Unknown - 20mg Capsules 06/23/2017 Potassium Chloride 1 by mouth every day Unknown - 20Meq 09/24/2016 Escitalopram Oxalate 1/2 po qd [place], - 10mg Tablets MD Bharat 06/23/2017 Ranitidine HCL 1 PO qd [place], - 150mg Tablets MD Bharat 02/13/2018 Vital Signs Date Vital Result Comment 03/03/2019 1:20pm Height 65.5 inches 5'5.50" Weight 187.75 lb Heart Rate 84 /min BP Systolic Sitting 128 mmHg BP Diastolic Sitting 92 mmHg Respiratory Rate 16 /min BMI (Body Mass Index) 30.8 kg/m2 05/23/2018 11:12am Height 65.5 inches 5'5.50" Weight 175.00 lb Heart Rate 76 /min BP Systolic Sitting 110 mmHg BP Diastolic Sitting 84 mmHg Respiratory Rate 16 /min O2 % BldC Oximetry 99 % on Ra BMI (Body Mass Index) 28.7 kg/m2 04/21/2018 11:43am Height 65.5 inches 5'5.50" Weight 180.00 lb w/shoes Heart Rate 76 /min BP Systolic Sitting 110 mmHg Lue lg cuff BP Diastolic Sitting 78 mmHg Lue lg cuff BMI (Body Mass Index) 29.5 kg/m2 Ejection Fraction 50-55% Echo 11/28/16 02/14/2018 9:34am Height 65.5 inches 5'5.50" Weight 192.50 lb Heart Rate 68 /min BP Systolic Sitting 138 mmHg Lue reg cuff BP Diastolic Sitting 110 mmHg Lue reg cuff Respiratory Rate 16 /min O2 % BldC Oximetry 98 % On Ra BMI (Body Mass Index) 31.5 kg/m2 09/27/2017 11:39am Height 65.5 inches 5'5.50" Weight 192.12 lb Heart Rate 58 /min BP Systolic Sitting 140 mmHg BP Diastolic Sitting 92 mmHg Respiratory Rate 20 /min O2 % BldC Oximetry 97 % BMI (Body Mass Index) 31.5 kg/m2 08/24/2017 10:04am Height 65.5 inches 5'5.50" Weight 199.00 lb Heart Rate 68 /min BP Systolic Sitting 112 mmHg BP Diastolic Sitting 66 mmHg Respiratory Rate 14 /min O2 % BldC Oximetry 98 % BMI (Body Mass Index) 32.6 kg/m2 Neck Circumference in inches 14 06/24/2017 11:07am Height 65 inches 5'5" Weight 193.50 lb with shoes Heart Rate 68 /min BP Systolic Sitting 128 mmHg LA reg cuff BP Diastolic Sitting 78 mmHg LA reg cuff BMI (Body Mass Index) 32.2 kg/m2 Ejection Fraction 50-55% echo 11/28/16 10/25/2016 10:58am Height 65 inches 5'5" Weight 195.75 lb with shoes Heart Rate 70 /min BP Systolic Sitting 136 mmHg LA reg cuff BP Diastolic Sitting 98 mmHg LA reg cuff BMI (Body Mass Index) 32.6 kg/m2 Ejection Fraction 60% - 65% echo 01/06/16 09/25/2016 9:21am Height 65 inches 5'5" Weight 196.00 lb Heart Rate 72 /min BP Systolic Sitting 118 mmHg BP Diastolic Sitting 68 mmHg Respiratory Rate 16 /min Pain Level 3 BMI (Body Mass Index) 32.6 kg/m2 03/08/2016 11:14am Height 65 inches 5'5" Weight 190.00 lb w/shoes Heart Rate 78 /min BP Systolic Sitting 148 mmHg LA reg cuff BP Diastolic Sitting 96 mmHg LA reg cuff BMI (Body Mass Index) 31.6 kg/m2 Ejection Fraction 60-65 Echo 01/06/16 12/21/2015 8:42am Height 65 inches 5'5" Weight 198.00 lb Heart Rate 64 /min BP Systolic Sitting 130 mmHg BP Diastolic Sitting 90 mmHg Respiratory Rate 14 /min Body Temperature 98.2 F Pain Level 4 BMI (Body Mass Index) 32.9 kg/m2 12/13/2015 2:11pm Height 65 inches 5'5" Weight 196.75 lb with shoes Heart Rate 64 /min BP Systolic Sitting 138 mmHg LA, Regular BP Diastolic Sitting 84 mmHg LA, Regular BMI (Body Mass Index) 32.7 kg/m2 Ejection Fraction 55% echo 01/23/10 09/27/2015 2:25pm Height 65 inches 5'5" Weight 196.00 lb Heart Rate 71 /min BP Systolic 134 mmHg BP Diastolic 93 mmHg BMI (Body Mass Index) 32.6 kg/m2 09/22/2015 9:15am Height 66 inches 5'6" Weight 196.38 lb Heart Rate 72 /min BP Systolic Sitting 122 mmHg BP Diastolic Sitting 70 mmHg Respiratory Rate 14 /min Pain Level 4 BMI (Body Mass Index) 31.7 kg/m2 09/01/2015 8:51am Height 66 inches 5'6" Weight 196.38 lb Heart Rate 78 /min BP Systolic Sitting 120 mmHg BP Diastolic Sitting 70 mmHg Respiratory Rate 14 /min Pain Level 4 BMI (Body Mass Index) 31.7 kg/m2 08/12/2015 9:40am Height 66 inches 5'6" Weight 195.00 lb Heart Rate 82 /min BP Systolic Sitting 124 mmHg BP Diastolic Sitting 88 mmHg Body Temperature 97.4 F Pain Level 1 BMI (Body Mass Index) 31.5 kg/m2 07/27/2014 9:30am Height 66 inches 5'6" Weight 186.00 lb Heart Rate 68 /min BP Systolic Sitting 138 mmHg BP Diastolic Sitting 86 mmHg BMI (Body Mass Index) 30.0 kg/m2 04/09/2014 4:02pm Height 66 inches 5'6" Weight 177.25 lb Heart Rate 62 /min BP Systolic Sitting 132 mmHg BP Diastolic Sitting 90 mmHg Pain Level 2 BMI (Body Mass Index) 28.6 kg/m2 11/09/2013 8:31am Height 66 inches 5'6" Weight 164.50 lb Heart Rate 68 /min BP Systolic Sitting 132 mmHg BP Diastolic Sitting 86 mmHg BMI (Body Mass Index) 26.5 kg/m2 10/28/2012 3:58pm Height 66 inches 5'6" Weight 155.00 lb Heart Rate 78 /min BP Systolic Sitting 126 mmHg BP Diastolic Sitting 74 mmHg BMI (Body Mass Index) 25.0 kg/m2 05/27/2012 3:41pm Height 66 inches 5'6" Weight 156.00 lb Heart Rate 77 /min BP Systolic Sitting 126 mmHg BP Diastolic Sitting 77 mmHg BMI (Body Mass Index) 25.2 kg/m2 11/27/2011 3:15pm Height 66 inches 5'6" Weight 183.00 lb Heart Rate 82 /min BP Systolic Sitting 128 mmHg BP Diastolic Sitting 80 mmHg BMI (Body Mass Index) 29.5 kg/m2 08/23/2011 3:44pm Height 66 inches 5'6" Weight 180.00 lb Heart Rate 82 /min BP Systolic Sitting 132 mmHg BP Diastolic Sitting 78 mmHg BMI (Body Mass Index) 29.0 kg/m2 05/22/2011 11:47am Height 66 inches 5'6" Weight 175.00 lb Heart Rate 80 /min BP Systolic 120 mmHg BP Diastolic 84 mmHg BMI (Body Mass Index) 28.2 kg/m2 03/15/2011 4:29pm Height 66 inches 5'6" Weight 177.00 lb Heart Rate 80 /min BP Systolic 120 mmHg BP Diastolic 80 mmHg BMI (Body Mass Index) 28.6 kg/m2 12/14/2010 4:28pm Height 66 inches 5'6" Weight 183.00 lb Heart Rate 80 /min BP Systolic 140 mmHg BP Diastolic 80 mmHg BMI (Body Mass Index) 29.5 kg/m2 Results Test Date Facility Test Result H/L Range Note Laboratory test 09/12/2015 [facility] CRP High 9.17 mg/L Normal [address] [place] [address] [phone] Kimberly Screen Negative Normal Negative 2 Creatine Kinase(CK) 91 U/L Normal 10-223 3 Hepatitis 09/12/2015 [facility] Hepatitis B Nonreactive Normal Nonreactive Acute Panel [address] [place] [address] Antigen [phone] Hepatitis B Core IgM Nonreactive Normal Nonreactive Hepatitis A AB IgM Nonreactive Normal Nonreactive Hepatitis C Antibody Nonreactive Normal Nonreactive Basic Metabolic 09/12/2015 [facility] Sodium 138 mmol/L Normal 133-[address] [place] [address] [phone] Potassium 3.5 mmol/L Normal 3.5-5.0 Chloride 104 mmol/L Normal 101-111 Co2 Carbon Dioxide 28 mmol/L Normal 22-32 Anion Gap 6 mmol/L Normal 2-11 Glucose 86 mg/dL Normal 70-100 Blood Urea Nitrogen 11 mg/dL Normal 6-24 Creatinine 0.80 mg/dL Normal 0.51-0.95 BUN/Creatinine Ratio 13.8 Normal 8-20 Calcium 9.0 mg/dL Normal 8.6-10.3 Egfr Non- 75.9 Normal >60 Egfr 97.6 Normal >60 4 Hla B27 09/12/2015 [facility] Hla B27 Negative Normal [address] [place], [place] [id number] [phone] Hla B27 Interp See Comment Normal 6 Laboratory test 08/30/2015 [facility] Rheumatoid <15 IU/mL Normal <[address] [place] [address] [phone] Cyclic Citrullinated Pep Igg <15.6 U Normal 8 Laboratory 08/30/2015 [facility] Meena Negative Normal Negative [address] ([place] [address] Antibodies) [phone] Kimberly Screen Negative Normal Negative 10 CBC Auto 02/07/2015 [facility] White Blood 6.2 10^3/uL Normal 4.8-10.[address] [place] [address] [phone] Red Blood Count 4.61 10^6/uL Normal 4.0-5.4 Hemoglobin 14.0 g/dL Normal 12.0-16.0 Hematocrit 42 % Normal 35-47 Mean Corpuscular Volume 91 fL Normal 80-97 Mean Corpuscular Hemoglobin 30 pg Normal 27-31 Mean Corpuscular HGB Conc 34 g/dL Normal 31-36 Red Cell Distribution Width 13 % Normal 10.5-15 Platelet Count 188 10^3/uL Normal 150-450 Mean Platelet Volume 10 um3 Normal 7.4-10.4 Abs Neutrophils 3.6 10^3/uL Normal 1.5-7.7 Abs Lymphocytes 2.2 10^3/uL Normal 1.0-4.8 Abs Monocytes 0.4 10^3/uL Normal 0-0.8 Abs Eosinophils 0 10^3/uL Normal 0-0.6 Abs Basophils 0 10^3/uL Normal 0-0.2 Abs Nucleated RBC 0 10^3/uL Normal Granulocyte % 57.3 % Normal 38-83 Lymphocyte % 35.3 % Normal 25-47 Monocyte % 6.7 % Normal 1-9 Eosinophil % 0.1 % Normal 0-6 Basophil % 0.6 % Normal 0-2 Nucleated Red Blood Cells % 0.1 Normal Laboratory test 02/07/2015 [facility] C Reactive 8.32 mg/L High < 5.00 [address] [place] [address] [phone] Erythrocyte Sed Rate 50 mm/Hr High 0-14 Comp Metabolic 02/07/2015 [facility] Sodium 136 mmol/L Normal 133-[address] [place] [address] [phone] Potassium 3.8 mmol/L Normal 3.5-5.0 Chloride 102 mmol/L Normal 101-111 Co2 Carbon Dioxide 29 mmol/L Normal 22-32 Anion Gap 5 mmol/L Normal 2-11 Glucose 149 mg/dL High 70-100 Blood Urea Nitrogen 12 mg/dL Normal 6-24 Creatinine 0.88 mg/dL Normal 0.51-0.95 BUN/Creatinine Ratio 13.6 Normal 8-20 Calcium 9.2 mg/dL Normal 8.6-10.3 Total Protein 6.9 g/dL Normal 6.4-8.9 Albumin 4.1 g/dL Normal 3.2-5.2 Globulin 2.8 g/dL Normal 2-4 Albumin/Globulin Ratio 1.5 Normal 1-3 Total Bilirubin 0.70 mg/dL Normal 0.2-1.0 Alkaline Phosphatase 66 U/L Normal 34-104 Alt 53 U/L High 7-52 Ast 33 U/L Normal 13-39 Egfr Non- 68.3 Normal >60 Egfr 87.8 Normal >60 12 Comp Metabolic 03/15/2014 [facility] Sodium 137 mmol/L Normal 133-[address] [place] [address] [phone] Potassium 3.8 mmol/L Normal 3.7-5.6 Chloride 102 mmol/L Normal 101-111 Co2 Carbon Dioxide 29 mmol/L Normal 22-32 Anion Gap 6 mmol/L Normal 2-11 Glucose 82 mg/dL Normal 70-100 Blood Urea Nitrogen 11 mg/dL Normal 6-24 Creatinine 0.88 mg/dL Normal 0.51-0.95 BUN/Creatinine Ratio 12.5 Normal 8-20 Calcium 9.6 mg/dL Normal 8.6-10.3 Total Protein 7.6 g/dL Normal 6.4-8.9 Albumin 4.6 g/dL Normal 3.2-5.2 Globulin 3.0 g/dL Normal 2-4 Albumin/Globulin Ratio 1.5 Normal 1-3 Total Bilirubin 0.60 mg/dL Normal 0.2-1.0 Alkaline Phosphatase 65 U/L Normal 34-104 Alt 19 U/L Normal 7-52 Ast 21 U/L Normal 13-39 Egfr Non- 68.6 Normal >60 Egfr 88.2 Normal >60 13 Laboratory test 03/15/2014 [facility] C Reactive 4.79 mg/L Normal < 5.[address] [place] [address] [phone] CBC Auto Diff 03/15/2014 [facility] White Blood 6.5 Normal 4.8 -10.[address] Count 10^3/[place] [address] [phone] Red Blood Count 4.51 10^6/uL Normal 4.0-5.4 Hemoglobin 14.0 g/dL Normal 12.0-16.0 Hematocrit 40 % Normal 35-47 Mean Corpuscular Volume 88 fL Normal 80-97 Mean Corpuscular Hemoglobin 31 pg Normal 27-31 Mean Corpuscular HGB Conc 35 g/dL Normal 31-36 Red Cell Distribution Width 13 % Normal 10.5-15 Platelet Count 194 10^3/uL Normal 150-450 Mean Platelet Volume 12 um3 High 7.4-10.4 Abs Neutrophils 3.2 10^3/uL Normal 1.5-7.7 Abs Lymphocytes 2.7 10^3/uL Normal 1.0-4.8 Abs Monocytes 0.5 10^3/uL Normal 0-0.8 Abs Eosinophils 0.1 10^3/uL Normal 0-0.6 Abs Basophils 0 10^3/uL Normal 0-0.2 Abs Nucleated RBC 0 10^3/uL Normal Granulocyte % 48.8 % Normal 38-83 Lymphocyte % 42.0 % Normal 25-47 Monocyte % 7.0 % Normal 1-9 Eosinophil % 1.5 % Normal 0-6 Basophil % 0.7 % Normal 0-2 Nucleated Red Blood Cells % 0.1 Normal Laboratory test 03/15/2014 [facility] Erythrocyte Sed 38 mm/Hr High 0-[address] [place] [address] [phone] CBC Auto Diff 10/16/2013 [facility] White Blood 8.5 4.8-10.[address] Count 10^3/uL [place], [place] [id number] [phone] Red Blood Count 4.26 10^6/uL 4.0-5.4 Hemoglobin 13.0 g/dL 12.0-16.0 Hematocrit 37 % 35-47 Mean Corpuscular Volume 88 fL 80-97 Mean Corpuscular Hemoglobin 31 pg 27-31 Mean Corpuscular HGB Conc 35 g/dL 31-36 Red Cell Distribution Width 13 % 10.5-15 Platelet Count 192 10^3/uL 150-450 Mean Platelet Volume 12 um3 High 7.4-10.4 Abs Neutrophils 5.4 10^3/uL 1.5-7.7 Abs Lymphocytes 2.5 10^3/uL 1.0-4.8 Abs Monocytes 0.5 10^3/uL 0-0.8 Abs Eosinophils 0.1 10^3/uL 0-0.6 Abs Basophils 0 10^3/uL 0-0.2 Abs Nucleated RBC 0.02 10^3/uL Granulocyte % 62.8 % 38-83 Lymphocyte % 29.5 % 25-47 Monocyte % 5.6 % 1-9 Eosinophil % 1.7 % 0-6 Basophil % 0.4 % 0-2 Nucleated Red Blood Cells % 0.2 Comp Metabolic Panel 10/16/2013 [facility] Sodium 137 mmol/L 133-[address] [place] [address] [phone] Potassium 3.8 mmol/L 3.7-5.6 Chloride 103 mmol/L 101-111 Co2 Carbon Dioxide 28 mmol/L 22-32 Anion Gap 6 mmol/L 2-11 Glucose 75 mg/dL 70-100 Blood Urea Nitrogen 7 mg/dL 6-24 Creatinine 0.67 mg/dL 0.51-0.95 BUN/Creatinine Ratio 10.4 8-20 Calcium 9.2 mg/dL 8.6-10.3 Total Protein 6.9 g/dL 6.4-8.9 Albumin 4.2 g/dL 3.2-5.2 Globulin 2.7 g/dL 2-4 Albumin/Globulin Ratio 1.6 1-3 Total Bilirubin 0.30 mg/dL 0.2-1.0 Alkaline Phosphatase 66 U/L 34-104 Alt 20 U/L 7-52 Ast 17 U/L 13-39 Egfr Non- 93.9 >60 Egfr 120.8 >60 15 Laboratory test 10/16/2013 [facility] Erythrocyte Sed 49 mm/Hr High 0-[address] [place] [address] [phone] C Reactive Protein 4.55 mg/L < 5.00 16 Laboratory test 10/25/2012 [facility] C Reactive < 0.5 mg/dL Less than finding [address] Protein 0.5 [place] [address] [phone] Liver Function 10/25/2012 [facility] Total Protein 7.2 g/dL 6.2-8.[address] [place] [address] [phone] Albumin 4.0 g/dL 3.6-5.4 Globulin 3.2 g/dL 2-4 Albumin/Globulin Ratio 1.3 1-3 Total Bilirubin 1.1 mg/dL 0.4-1.5 Direct Bilirubin 0.1 mg/dL 0.1-0.5 Indirect Bilirubin 1.0 mg/dL 0.3-1.0 Alkaline Phosphatase 63 U/L 30-110 Alt 26 U/L 14-54 Ast 28 U/L 12-42 Basic Metabolic Panel 10/25/2012 [facility] Sodium 139 mmol/L 133-[address] [place] [address] [phone] Potassium 3.4 mmol/L Low 3.5-5.0 Chloride 102 mmol/L 101-111 Co2 Carbon Dioxide 28.0 mmol/L 22-32 Anion Gap 9.0 mmol/L 2-11 Glucose 107 mg/dL High 70-100 Blood Urea Nitrogen 13 mg/dL 6-24 Creatinine 0.90 mg/dL 0.50-1.40 BUN/Creatinine Ratio 14.4 8-20 Calcium 9.5 mg/dL 8.1-9.9 Egfr Non- 67.1 >60 Egfr 86.3 >60 17 CBC With 10/25/2012 [facility] White Blood 7.6 10^3/uL 4.8- 10.8 Manual Diff [address] [place] [address] [phone] Red Blood Count 4.58 10^6/uL 4.0-5.4 Hemoglobin 14.3 g/dL 12.0-16.0 Hematocrit 41 % 35-47 Mean Corpuscular Volume 90 fL 80-97 Mean Corpuscular Hemoglobin 31 pg 27-31 Mean Corpuscular HGB Conc 35 g/dL 31-36 Red Cell Distribution Width 13 % 10.5-15 Platelet Count 193 10^3/uL 150-450 Mean Platelet Volume 11 um3 High 7.4-10.4 Abs Neutrophils 4.7 10^3/uL 1.5-7.7 Abs Lymphocytes 2.3 10^3/uL 1.0-4.8 Abs Monocytes 0.5 10^3/uL 0-0.8 Abs Eosinophils 0.1 10^3/uL 0-0.6 Abs Basophils 0.1 10^3/uL 0-0.2 Abs Nucleated RBC 0 10^3/uL Neutrophil % 61 % 38-83 Lymphocytes % 33 % 25-47 Monocytes % 3 % 0-13 Basophil % 2 % 0-2 Reactive Lymph % 1 % 0-6 RBC Morphology Normal Normal Laboratory test 10/25/2012 [facility] Erythrocyte Sed 41 mm/Hr High 0-[address] [place] [address] [phone] Basic Metabolic 08/23/2012 [facility] Sodium 140 133-[address] mmol/[place] [address] [phone] Potassium 4.0 mmol/L 3.5-5.0 Chloride 108 mmol/L 101-111 Co2 Carbon Dioxide 26.0 mmol/L 22-32 Anion Gap 6.0 mmol/L 2-11 Glucose 82 mg/dL 70-100 Blood Urea Nitrogen 9 mg/dL 6-24 Creatinine 0.80 mg/dL 0.50-1.40 BUN/Creatinine Ratio 11.3 8-20 Calcium 9.1 mg/dL 8.1-9.9 Egfr Non- 76.9 >60 Egfr 98.9 >60 18 Liver Function 08/23/2012 [facility] Total Protein 6.5 g/dL 6.2-8.[address] [place] [address] [phone] Albumin 3.6 g/dL 3.6-5.4 Globulin 2.9 g/dL 2-4 Albumin/Globulin Ratio 1.2 1-3 Total Bilirubin 0.8 mg/dL 0.4-1.5 Direct Bilirubin 0.1 mg/dL 0.1-0.5 Indirect Bilirubin 0.7 mg/dL 0.3-1.0 Alkaline Phosphatase 48 U/L 30-110 Alt 18 U/L 14-54 Ast 23 U/L 12-42 Laboratory test 08/23/2012 [facility] C Reactive < 0.5 mg/dL Less than finding [address] Protein 0.5 [place] [address] [phone] CBC With Manual 08/23/2012 [facility] White Blood 7.1 10^3/uL 4.8-10.[address] [place] [address] [phone] Red Blood Count 4.24 10^6/uL 4.0-5.4 Hemoglobin 13.0 g/dL 12.0-16.0 Hematocrit 38 % 35-47 Mean Corpuscular Volume 91 fL 80-97 Mean Corpuscular Hemoglobin 31 pg 27-31 Mean Corpuscular HGB Conc 34 g/dL 31-36 Red Cell Distribution Width 13 % 10.5-15 Platelet Count 185 10^3/uL 150-450 Mean Platelet Volume 11 um3 High 7.4-10.4 Abs Neutrophils 4.5 10^3/uL 1.5-7.7 Abs Lymphocytes 2.0 10^3/uL 1.0-4.8 Abs Monocytes 0.4 10^3/uL 0-0.8 Abs Eosinophils 0.1 10^3/uL 0-0.6 Abs Basophils 0 10^3/uL 0-0.2 Abs Nucleated RBC 0 10^3/uL Neutrophil % 75 % 38-83 Band % 3 % 0-8 Lymphocytes % 20 % Low 25-47 Monocytes % 1 % 0-13 Reactive Lymph % 1 % 0-6 RBC Morphology Normal Normal Laboratory test 08/23/2012 [facility] Erythrocyte Sed 38 mm/Hr High 0-[address] [place] [address] [phone] Laboratory test 05/27/2012 [facility] C Reactive 0.7 mg/dL High Less finding [address] Protein Than 0.5 [place] [address] [phone] Liver Function 05/27/2012 [facility] Total Protein 6.7 GM/DL 6.2-8.[address] [place] [address] [phone] Albumin 4.0 GM/DL 3.6-5.4 Globulin 2.7 GM/DL 2-4 Albumin/Globulin Ratio 1.5 1-3 Total Bilirubin 1.3 mg/dL High 0.1-1.0 19 Direct Bilirubin 0.1 mg/dL 0.1-0.5 Indirect Bilirubin 1.2 mg/dL High 0.3-1.0 Alkaline Phosphatase 62 U/L 30-110 Alt 40 U/L 14-54 Ast 31 U/L 12-42 Basic Metabolic Panel 05/27/2012 [facility] Sodium 137 mmol/L 133-[address] [place] [address] [phone] Potassium 3.1 mmol/L Low 3.5-5.0 Chloride 99 mmol/L Low 101-111 Co2 Carbon Dioxide 30.0 mmol/L 22-32 Anion Gap 8.0 mmol/L 2-11 Glucose 97 mg/dL 70-100 Blood Urea Nitrogen 11 mg/dL 6-24 Creatinine 0.80 mg/dL 0.50-1.40 BUN/Creatinine Ratio 13.8 8-20 Calcium 9.6 mg/dL 8.1-9.9 Egfr Non- 76.9 >60 Egfr 98.9 >60 20 CBC With 05/27/2012 [facility] White Blood 6.0 10^3/uL 4.8- 10.8 Manual Diff [address] [place] [address] [phone] Red Blood Count 4.55 10^6/uL 4.0-5.4 Hemoglobin 14.3 g/dL 12.0-16.0 Hematocrit 41 % 35-47 Mean Corpuscular Volume 89 fL 80-97 Mean Corpuscular Hemoglobin 31 pg 27-31 Mean Corpuscular HGB Conc 35 g/dL 31-36 Red Cell Distribution Width 13 % 10.5-15 Platelet Count 187 10^3/uL 150-450 Mean Platelet Volume 12 um3 High 7.4-10.4 Abs Neutrophils 3.7 10^3/uL 1.5-7.7 Abs Lymphocytes 1.8 10^3/uL 1.0-4.8 Abs Monocytes 0.4 10^3/uL 0-0.8 Abs Eosinophils 0.1 10^3/uL 0-0.6 Abs Basophils 0.1 10^3/uL 0-0.2 Abs Nucleated RBC 0 10^3/uL Neutrophil % 65.0 % 38-83 Band % 0 % 0-8 Lymphocytes % 29.0 % 25-47 Monocytes % 5.0 % 0-13 Eosinophils % 1.0 % 0-6 Basophil % 0 % 0-2 Reactive Lymph % 0 % 0-6 Metamyelocytes % 0 % 0-2 Myelocytes % 0 % 0-1 Promyelocytes % 0 % Blast % 0 % RBC Morphology Normal Normal Laboratory test 05/27/2012 [facility] Erythrocyte Sed 50 MM/HR High 0-[address] [place] [address] [phone] Laboratory test 12/22/2009 [facility] C Reactive 0.8 mg/dL High Less finding [address] Protein Than 0.5 [place] [address] [phone] Erythrocyte Sed Rate 49 MM/HR High 0-15 Liver Function 12/22/2009 [facility] Total Protein 6.8 GM/DL 6.2-8.[address] [place] [address] [phone] Albumin 3.9 GM/DL 3.6-5.4 Globulin 2.9 GM/DL 2-4 Albumin/Globulin Ratio 1.3 1-3 Bilirubin Total 0.7 mg/dL 0.4-1.5 21 Bilirubin Direct 0.1 mg/dL 0.1-0.5 Indirect Bilirubin 0.6 mg/dL 0.1-0.75 Alkaline Phosphatase 74 U/L 30-110 Alt (SGPT) 53 U/L 14-54 Ast (Sgot) 41 U/L 12-42 Metanephrines, 12/22/2009 [facility] Normetanephrine, 0.86 < 0.90 Plasma 101 Free nmol/[place] [address] [phone] Metanephrine, Free <0.20 nmol/L <0.50 22 Laboratory test 12/22/2009 [facility] Thyroxine Free 1.12 NG/ML 0.61-1.24 23 finding [address] [place] [address] [phone] TSH 1.95 MIU/ML 0.34-5.60 Lipid Profile 12/22/2009 [facility] Triglyceride 104 mg/dL 40 -200 (Trig/Chol/HDL) [address] [place] [address] [phone] Cholesterol 191 mg/dL Less Than 200 24 High Density Lipoprotein 34 mg/dL Low 40-60 25 Cholesterol/HDL Ratio 5.62 AVERAGE High 1-4.44 Low Density Lipoprotein 136 mg/dL High Less Than 100 26 Comp Metabolic Panel 12/22/2009 [facility] Sodium 137 mmol/L 135-145 [address] [place] [address] [phone] Potassium 3.2 mmol/L Low 3.5-5.0 Chloride 99 mmol/L Low 101-111 Co2 (Carbon Dioxide) 30.0 mmol/L 22-32 Anion Gap 8.0 mmol/L 2-11 27 Glucose 96 mg/dL 70-100 28 BUN 6 mg/dL 6-24 Creatinine 0.80 mg/dL 0.50-1.40 One Over Creatinine 1.20 BUN/Creatinine Ratio 7.5 Low 8-20 Calcium 9.5 mg/dL 8.1-9.9 29 Total Protein 7.4 GM/DL 6.2-8.1 Albumin 4.0 GM/DL 3.6-5.4 Globulin 3.4 GM/DL 2-4 Albumin/Globulin Ratio 1.2 1-3 Bilirubin Total 0.8 mg/dL 0.4-1.5 30 Alkaline Phosphatase 74 U/L 30-110 Alt (SGPT) 53 U/L 14-54 Ast (Sgot) 45 U/L High 12-42 eGFR Non- 82.8 > 60 eGFR 100.2 > 60 31 CBC With 12/22/2009 [facility] White Blood 5.5 CUMM 4.8-10.8 Electronic Diff [address] [place], [place] [id number] [phone] Red Cell Count 4.49 CUMM 4.2-5.4 Hemoglobin 12.2 g/dL 12.0-16.0 Hematocrit 36 % 35-47 Mean Corpuscular Volume 80 um3 79-97 Mean Corpuscular Hemoglob 27 pg 27-31 Mean Corpuscular HGB Cone 34 g/dL 32-36 Redcell Distribution WDTH 16 % High 10.5-15 Platelet Count 259 CUMM 150-450 Mean Platelet Volume 9.7 um3 7.4-10.4 Gran % 58.7 % 38-83 Lymph % 33.0 % 25-47 Mononuclear % 6.3 % 1-9 Eosinophil % 1.2 % 0-6 Basophil % 0.8 % 0-2 Abs Lymphs 1.8 1.0-4.8 Abs Mononuclear 0.3 0-0.8 Absolute Neutrophil Count 3.2 1.5-7.7 Abs Eosinophils 0.1 0-0.6 Abs Basophils 0 0-0.2 1 Low risk: <1.00 Average risk: 1.00-3.00 High risk: >3.00 2 The above KIMBERLY screen is designed for the detection of antibodies to extractable nuclear antigen (KIMBERLY) in human serum. It is a combination test for the detection of antibodies to NITROGLYCERIN NEUTRALIZER, Sm, SS-A (Ro), and SS-B (La) nuclear antigens. 3 Please do this week 4 Because ethnic data is not always readily available, this report includes an eGFR for both -Americans and non- Americans. The National Kidney Disease Education Program (NKDEP) does not endorse the use of the MDRD equation for patients that are not between the ages of 18 and 70, are , have extremes of body size, muscle mass, or nutritional status, or are non- or non-. According to the National Kidney Foundation, irrespective of diagnosis, the stage of the disease is based on the level of kidney function: Stage Description GFR(mL/min/1.73 m(2)) 1 Kidney damage with normal or decreased GFR 90 2 Kidney damage with mild decrease in GFR 60-89 3 Moderate decrease in GFR 30-59 4 Severe decrease in GFR 15-29 5 Kidney failure <15 (or dialysis) 5 REFERENCE VALUE Not Applicable 6 RESULT: HLA-B27 antigen was not detected. ADDITIONAL INFORMATION Method: Flow Cytometry Performing Laboratory CLIA# [id number] Test Performed by: [place] [address] Talent Director: Fabian Woods II, M.D., Ph.D. 7 Test Performed by: [place] [address] Talent Director: Fabian Woods II, M.D., Ph.D. 8 REFERENCE VALUE <20.0 (Negative) Test Performed by: [place] [address] Talent Director: Fabian Woods II, M.D., Ph.D. 9 standing order q 6 weeks 10 The above KIMBERLY screen is designed for the detection of antibodies to extractable nuclear antigen (KIMBERLY) in human serum. It is a combination test for the detection of antibodies to NITROGLYCERIN NEUTRALIZER, Sm, SS-A (Ro), and SS-B (La) nuclear antigens. 11 Acute inflammation: >10.00 12 Because ethnic data is not always readily available, this report includes an eGFR for both -Americans and non- Americans. The National Kidney Disease Education Program (NKDEP) does not endorse the use of the MDRD equation for patients that are not between the ages of 18 and 70, are , have extremes of body size, muscle mass, or nutritional status, or are non- or non-. According to the National Kidney Foundation, irrespective of diagnosis, the stage of the disease is based on the level of kidney function: Stage Description GFR(mL/min/1.73 m(2)) 1 Kidney damage with normal or decreased GFR 90 2 Kidney damage with mild decrease in GFR 60-89 3 Moderate decrease in GFR 30-59 4 Severe decrease in GFR 15-29 5 Kidney failure <15 (or dialysis) 13 Because ethnic data is not always readily available, this report includes an eGFR for both -Americans and non- Americans. The National Kidney Disease Education Program (NKDEP) does not endorse the use of the MDRD equation for patients that are not between the ages of 18 and 70, are , have extremes of body size, muscle mass, or nutritional status, or are non- or non-. According to the National Kidney Foundation, irrespective of diagnosis, the stage of the disease is based on the level of kidney function: Stage Description GFR(mL/min/1.73 m(2)) 1 Kidney damage with normal or decreased GFR 90 2 Kidney damage with mild decrease in GFR 60-89 3 Moderate decrease in GFR 30-59 4 Severe decrease in GFR 15-29 5 Kidney failure <15 (or dialysis) 14 Acute inflammation: >10.00 15 Because ethnic data is not always readily available, this report includes an eGFR for both -Americans and non- Americans. The National Kidney Disease Education Program (NKDEP) does not endorse the use of the MDRD equation for patients that are not between the ages of 18 and 70, are , have extremes of body size, muscle mass, or nutritional status, or are non- or non-. According to the National Kidney Foundation, irrespective of diagnosis, the stage of the disease is based on the level of kidney function: Stage Description GFR(mL/min/1.73 m(2)) 1 Kidney damage with normal or decreased GFR 90 2 Kidney damage with mild decrease in GFR 60-89 3 Moderate decrease in GFR 30-59 4 Severe decrease in GFR 15-29 5 Kidney failure <15 (or dialysis) 16 Acute inflammation: >10.00 In accordance with FDA guideline, CRP is now reported in mg/L, previous reporting was in mg/dL. 17 Because ethnic data is not always readily available, this report includes an eGFR for both -Americans and non- Americans. The National Kidney Disease Education Program (NKDEP) does not endorse the use of the MDRD equation for patients that are not between the ages of 18 and 70, are , have extremes of body size, muscle mass, or nutritional status, or are non- or non-. According to the National Kidney Foundation, irrespective of diagnosis, the stage of the disease is based on the level of kidney function: Stage Description GFR(mL/min/1.73 m(2)) 1 Kidney damage with normal or decreased GFR 90 2 Kidney damage with mild decrease in GFR 60-89 3 Moderate decrease in GFR 30-59 4 Severe decrease in GFR 15-29 5 Kidney failure <15 (or dialysis) 18 Because ethnic data is not always readily available, this report includes an eGFR for both -Americans and non- Americans. The National Kidney Disease Education Program (NKDEP) does not endorse the use of the MDRD equation for patients that are not between the ages of 18 and 70, are , have extremes of body size, muscle mass, or nutritional status, or are non- or non-. According to the National Kidney Foundation, irrespective of diagnosis, the stage of the disease is based on the level of kidney function: Stage Description GFR(mL/min/1.73 m(2)) 1 Kidney damage with normal or decreased GFR 90 2 Kidney damage with mild decrease in GFR 60-89 3 Moderate decrease in GFR 30-59 4 Severe decrease in GFR 15-29 5 Kidney failure <15 (or dialysis) 19 A metabolite of Naproxen, O-desmethylnaproxen, has been shown to interfere with the Jendrassik-Ani method for measuring total bilirubin. Samples from patients who have taken Naproxen have shown spurious elevation in total bilirubin levels. 20 Because ethnic data is not always readily available, this report includes an eGFR for both -Americans and non- Americans. The National Kidney Disease Education Program (NKDEP) does not endorse the use of the MDRD equation for patients that are not between the ages of 18 and 70, are , have extremes of body size, muscle mass, or nutritional status, or are non- or non-. According to the National Kidney Foundation, irrespective of diagnosis, the stage of the disease is based on the level of kidney function: Stage Description GFR(mL/min/1.73 m(2)) 1 Kidney damage with normal or decreased GFR 90 2 Kidney damage with mild decrease in GFR 60-89 3 Moderate decrease in GFR 30-59 4 Severe decrease in GFR 15-29 5 Kidney failure <15 (or dialysis) 21 A metabolite of Naproxen, O-desmethylnaproxen, has been shown to interfere with the Jendrassik-Ani method for measuring total bilirubin. Samples from patients who have taken Naproxen have shown spurious elevation in total bilirubin levels. 22 Test Performed by: [facility] [address] [place] [address] Talent Director: Rodney Interiano III, M.D. 23 PLEASE NOTE NEW REFERENCE RANGES. 24 CHOLESTEROL INTERPRETATION: Desirable: Less than 200 MG/DL Borderline-High Risk: 200-239 MG/DL High-Risk: 240 MG/DL and over 25 HDL INTERPRETATION: Undesirable: High Risk: Less than 40 MG/DL Desirable: Low Risk: Greater than 60 MG/DL 26 LDL INTERPRETATION: Low Risk Optimal Level: LDL Less than 100 MG/DL Near or Above Optimal: LDL 100-129 MG/DL Borderline High Risk: LDL 130-159 MG/DL High Risk: LDL 160-189 MG/DL Very High Risk: LDL Greater than 189 MG/DL 27 Anion gap measurement may be of limited value in the presence of any alkalosis, especially in a combined acid base disorder. . 28 Note change in reference range as of 03/25/08. The change was based on recommendations from the [place] [employer]. 29 Please note change in reference range effective 08 . 30 A metabolite of Naproxen, O-desmethylnaproxen, has been shown to interfere with the Jendrassik-Vanlue method for measuring total bilirubin. Samples from patients who have taken Naproxen have shown spurious elevation in total bilirubin levels. 31 Because ethnic data is not always readily available, this report includes an eGFR for both -Americans and non- Americans. The National Kidney Disease Education Program (NKDEP) does not endorse the use of the MDRD equation for patients that are not between the ages of 18 and 70, are , have extremes of body size, muscle mass, or nutritional status, or are non- or non-. According to the National Kidney Foundation, irrespective of diagnosis, the stage of the disease is based on the level of kidney function: Stage Description GFR(mL/min/1.73 m(2)) 1 Kidney damage with normal or decreased GFR 90 2 Kidney damage with mild decrease in GFR 60-89 3 Moderate decrease in GFR 30-59 4 Severe decrease in GFR 15-29 5 Kidney failure <15 (or dialysis) Procedures Date Code Description Status 04/21/2018 37322 EKG Tracing & Interpretation Completed 09/05/2017 11019 Sleep Study Unattended,HRT Rate,Oxygen Sat,Resp Completed Effort/Airflow 06/24/2017 67076 EKG Tracing & Interpretation Completed 11/28/2016 52017 ECHO Transthoracic, Real-Time 2D With Doppler And Completed Color Flow 10/25/2016 86619 EKG Tracing & Interpretation Completed 01/06/2016 69071 ECHO Transthorasic Realtime 2D W Doppler & Color Flow Completed Hosp 12/21/2015 11760 ECHO Stress Test Incl Perf Contiuous ekg Monitoring Completed W/Phys Superv 12/13/2015 59141 EKG Tracing & Interpretation Completed 09/30/2015 [id number] Diabetic Retinal Eye Exam Completed 05/14/2014 99255 Nerve Conduction 05-06 Studies Completed 04/23/2011 [id number] Mammogram Completed 01/23/2010 45424 ECHO Transthoracic, Real-Time 2D With Doppler And Completed Color Flow 01/20/2010 83167 ECHO Stress Test Incl Perf Contiuous ekg Monitoring Completed W/Phys Superv 01/20/2010 06031 ECHO Stress Test Incl Perf Contiuous ekg Monitoring Completed W/Phys Superv 12/09/2009 74667 EKG Tracing & Interpretation Completed Encounters Type Date Location Provider Dx Diagnosis Office Visit 05/23/2018 Pulmonology And Rashmi Kirkland, G47.33 Obstructive sleep 11:00a Sleep Services Of [facility] apnea (adult) [facility] (pediatric) Z68.28 Body mass index (BMI) 28.0-28.9, adult Office Visit 04/21/2018 Minerva Quandresybeh S. G47.33 Obstructive sleep 11:40a Cardiology [facility] Wheat apnea (adult) (pediatric) E66.9 Obesity, unspecified I10 Essential (primary) hypertension E78.4 Other hyperlipidemia Office Visit 02/14/2018 Pulmonology And Rashmi G47.33 Obstructive sleep 9:30a Sleep Services Of NATY Kirkland RN, apnea (adult) [facility]- (pediatric) Z68.31 Body mass index (BMI) 31.0-31.9, adult Office Visit 09/27/2017 Pulmonology And Rashmi G47.33 Obstructive sleep 11:30a Sleep Services Of NATY Kirkland RN, apnea (adult) [facility] (pediatric) Office Visit 08/24/2017 Pulmonology And Jessica Coronado, R06.83 Snoring 10:00a Sleep Services Of MD Ruiz R40.0 Somnolence G47.50 Parasomnia, unspecified Office Visit 06/24/2017 11:20a Minerva Adia Parham S. R06.02 Marylou of [facility] breath I34.0 Nonrheumatic mitral (valve) insufficiency I10 Essential (primary) hypertension E78.4 Other hyperlipidemia E66.9 Obesity, unspecified Office Visit 10/25/2016 Minerva Qutaybeh S. I34.0 Nonrheumatic mitral 11:20a Cardiology C[facility] Wheat (valve) insufficiency I10 Essential (primary) hypertension E78.4 Other hyperlipidemia E66.9 Obesity, unspecified R06.02 Shortness of breath Office Visit 09/25/2016 9:15a Orthopedic Services Kim David MD M54.2 Cervicalgia Of [facility] G56.21 Lesion of ulnar nerve, right upper limb S46.011D Strain of musc/tend the rotator cuff of right shoulder, subs M25.511 Pain in right shoulder R20.0 Anesthesia of skin Office Visit 03/08/2016 Minerva Dione S. I34.0 Nonrheumatic mitral 11:20a Cardiology [facility] (valve) insufficiency I10 Essential (primary) hypertension E78.4 Other hyperlipidemia M06.09 Rheumatoid arthritis w/o rheumatoid factor, multiple sites Office Visit 12/21/2015 8:40a Rheumatology Kristopher M06.09 Rheumatoid Services Of Joseph Medina M.D. 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 I10 Essential [facility] (primary) hypertension R94.31 Abnormal electrocardiogram [ECG] [EKG] E78.4 Other hyperlipidemia R07.9 Chest pain, unspecified Office Visit 09/27/2015 2:00p Orthopedic Mary S46.011A Strain of Services Of ZULEMA Arroyo/kin the [facility] rotator cuff of right shoulder, init G56.21 Lesion of ulnar nerve, right upper limb M54.2 Cervicalgia Office Visit 09/22/2015 9:00a Rheumatology Kristopher M06.Lance Rheumatoid Services Of Joseph Medina M.D. arthritis w/o rheumatoid factor, multiple sites Z79.899 Other terminal make up operator (current) drug therapy M35.01 Sicca syndrome with keratoconjunctivitis Office Visit 09/01/2015 9:00a Rheumatology Kristopher M06.Lance Rheumatoid Services Of Joseph Medina M.D. 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 M79.1 Myalgia R06.83 Snoring R74.0 Nonspec elev of levels of transamns & lactic acid dehydrgnse E87.6 Hypokalemia Office Visit 08/12/2015 9:30a Rheumatology Apple Barrera, M05.79 Rheu arthritis Services Of [facility] DRYER OPERATOR w rheu factor mult site w/o org/sys involv G56.21 Lesion of ulnar nerve, right upper limb M79.641 Pain in right hand G89.4 Chronic pain syndrome M06.09 Rheumatoid arthritis w/o rheumatoid factor, multiple sites Office Visit 07/27/2014 Orthopedic Ashley 727.43 Ganglion 9:00a Services Of César Ervin Unspec C.M.ABart 354.2 Lesion Ulnar Nerve Office Visit 04/09/2014 4:00p Rheumatology Apple Barrera, 714.0 Rheumatoid Services Of [facility] DRYER OPERATOR Arthritis 338.4 Chronic Pain Syndrome V58.69 Medications Usp (Current) Use Encounter Office Visit 11/09/2013 8:30a Rheumatology Apple Barrera 714.0 Rheumatoid Services Of [facility] DRYER OPERATOR Arthritis 338.4 Chronic Pain Syndrome V58.69 Medications Patient Access (Current) Use Encounter 461.0 Sinusitis Acute Maxillary Office Visit 10/28/2012 3:40p Rheumatology Apple Barrera, 714.0 Rheumatoid Services Of [facility] DRYER OPERATOR Arthritis V58.69 Medications Usp (Current) Use Encounter Office Visit 05/27/2012 3:40p Rheumatology Reggie Ramírez, 714.0 Rheumatoid Services Of Laboratory Director M.D. Arthritis 338.4 Chronic Pain Syndrome V58.69 Medications Usp (Current) Use Encounter Office Visit 11/27/2011 3:00p Rheumatology Reggie Ramírez, 714.0 Rheumatoid Services Of Laboratory Director M.D. Arthritis V58.69 Medications Usp (Current) Use Encounter Office Visit 08/23/2011 3:40p Rheumatology Reggie Ramírez, 714.0 Rheumatoid Services Of Laboratory Director M.D. Arthritis V58.69 Medications Patient Access (Current) Use Encounter Office Visit 05/22/2011 11:40a Rheumatology Reggie Ramírez, 714.0 Rheumatoid Services Of Laboratory Director M.D. Arthritis V58.69 Medications Patient Access (Current) Use Encounter 790.6 Abnormal Blood Chemistry Other Office Visit 03/15/2011 4:20p Rheumatology Reggie Ramírez, 714.0 Rheumatoid Services Of Laboratory Director M.D. Arthritis V58.69 Medications Patient Access (Current) Use Encounter 790.6 Abnormal Blood Chemistry Other Office Visit 12/14/2010 4:20p Rheumatology Reggie Ramírez, 714.0 Rheumatoid Services Of Laboratory Director M.D. Arthritis V58.69 Medications Patient Access (Current) Use Encounter Office Visit 12/09/2009 Pascual Parham SBart 401.0 Hypertension 2:30p Cardiology [facility] Wheat Malignant 794.31 Electrocardiogram (ECG) (EKG) Abnormal Plan of Treatment 05/23/2018 - Rashmi Kirk[facility] DNP, RN, DRYER OPERATOR-BCG47.33 Obstructive sleep apnea ( adult) (pediatric)Comments:Sleep Apnea - 09/05/17 HST AHI 22.1/hour, worse supine 31.9/hour, desire oxygen 85% wt 196Follow up:2 monthsRecommendations: Continue PAP device, Benefitting and need to increase compliance with treatment. to increase pressure to min 5 max 10 (done at office since you bbrought machine) Let us know if aerophagia returns. Avoid back for sleep when not using CPAP Once you are at goal weight to re-evaluate for sleep apnea. Information provided for the oral appliance/mandibular device. Cleaning Wipe off mask daily (baby wipe-no scent, or warm water) Clean mask, tubing, filter, and water chamber weekly in mild no scent dish soap and water. Hang to dry. So -Clean is an option (not covered by insurance) If you have any sleepiness while driving you MUST avoid operating a vehicle or machinery. If you have difficulty with yourequipment, or need to replace your mask or hoses, please contact your homecare agency. A weight change of 20 pounds or more may have an effect on your equipment; if you are experiencing problems pleasecall for an appointment. If you have any further questions, please call the [facility] at [phone].Z68.28 Body mass index (BMI) 28.0-28.9, adultRecommendations:Continue with weight loss efforts
[2019-03-05 07:26] VITALS: BP 140/105
[2019-03-05] MEDS ORDERED: Rabies VIRUS VACCINE (RabAvert)* 2.5 UNITS VIAL IM ONE (07:38)
--- NOTE | 2019-03-05 07:59 | UC ---
UC General HPI - HPI Summary HPI Summary: 53-year-old female with recent exposure to bat presents for rabies vaccination. Patient states she is here for a third vaccination. Patient did not have a witnessed bite but did notice about her room. Patient states she has had a sore throat for 3 days. Also having upper respiratory congestion. No difficulty in breathing, does have a mild cough. No fevers or chills. Patient thinks this is secondary to rabies. - History of Current Complaint Chief Complaint: UCBiteInjury Stated Complaint: RABIES Time Seen by Provider: 03/05/19 07:21 Hx Last Menstrual Period: doesn't get - uterine ablasion "years ago" Pain Intensity: 5 - Allergy/Home Medications Allergies/Adverse Reactions: Allergies Allergy/AdvReac Type Severity Reaction Status Date / Time No Known Allergies Allergy Verified 03/05/19 07:26 PMH/Surg Hx/FS Hx/Imm Hx Previously Healthy: Yes - Surgical History Surgical History: Yes Surgery Procedure, Year, and Place: cholecystectomy and ERCP; uterine ablasion - Family History Known Family History: Positive: Hypertension - Brother - Social History Alcohol Use: Occasionally Substance Use Type: None Smoking Status (MU): Never Smoked Tobacco - Immunization History Most Recent Tetanus Shot: 2018 Review of Systems All Other Systems Reviewed And Are Negative: Yes Constitutional: Negative: Fever ENT: Positive: Sore Throat, Sinus Congestion Respiratory: Positive: Cough - dry. Negative: Shortness Of Breath Physical Exam - Summary Physical Exam Summary: General: Well appearing, no distress HEENT: No tonsillar erythema, or swelling. No stridor. Cervical lymphadenopathy Cardiovascular: Skin is well perfused Pulmonary: EWOB on RA, Lungs CTAB, No respiratory distress, no tachypnea Abdomen: Non-distended Skin: Warm, pink, dry Psych: Flat affect Neuro: A&Ox3 Vital Signs: Initial Vital Signs Temp 36.1 C 03/05/19 07:21 Pulse 90 03/05/19 07:21 Resp 16 03/05/19 07:21 BP 140/105 03/05/19 07:21 Pulse Ox 97 03/05/19 07:21 Course/Dx - Course Course Of Treatment: 53-year-old female presents for third rabies vaccination shot. Rui administer rabies shot. Patient also reporting sore throat and pain with swallowing. No distress on exam. Lungs clear, no stridor. Tolerating secretions. She states her throat is dry. Patient advised to be secondary to allergic versus viral symptoms. The patient thinks this is secondary to rabies infection. Patient told to go to the emergency department if she continues to have symptoms or is concerned. - Diagnoses Provider Diagnosis: Rabies exposure, Sore throat Discharge - Sign-Out/Discharge Documenting (check all that apply): Patient Departure All imaging exams completed and their final reports reviewed: No Studies - Discharge Plan Condition: Stable Disposition: HOME Patient Education Materials: Rabies Vaccine (By injection), Rabies (ED) Referrals: Bharat Rinaldi MD [Primary Care Provider] - Additional Instructions: You were seen in the urgent care for rabies shot. Please seek immediate medical care for any worsening symptoms. If any studies were not completed at the time of discharge you will be called with the relevant results. It was a pleasure taking care of you today. - Billing Disposition and Condition Condition: STABLE Disposition: Home
== END 2019-03-05 08:05 | disposition home or self-care (01) ==
LOC: UCEAST 07:15
DX: Z29.14 Encounter for prophylactic rabies immune globulin (principal); J02.9 Acute pharyngitis, unspecified
CPT/HCPCS: 90471; 90675; 99211; G0463

== ENCOUNTER 2019-03-19 12:19 | Emergency (ER) | payer BC ==
[2019-03-19 12:37] VITALS: BP 141/87
[2019-03-19] MEDS ORDERED: Rabies VIRUS VACCINE (RabAvert)* 2.5 UNITS VIAL IM ONE (12:49)
--- NOTE | 2019-03-19 13:06 | ED ---
ED Suture/Wound Check - HPI Summary HPI Summary: 53 yr old female with the complaint of needs last rabies shot. She states she was bitten by a bat on the lateral lower left leg in mid February. Otherwise she has no other complaints. She is here for her last vaccine, and she is follow ing with ID doctor and primary. - History Of Current Complaint Chief Complaint: UCBiteInjury Stated Complaint: RABIES SHOT Time Seen by Provider: 03/19/19 12:48 Pain Intensity: 1 - Allergies/Home Medications Allergies/Adverse Reactions: Allergies Allergy/AdvReac Type Severity Reaction Status Date / Time No Known Allergies Allergy Verified 03/19/19 12:29 PMH/Surg Hx/FS Hx/Imm Hx Endocrine/Hematology History: Reports: Hx Thyroid Disease Denies: Hx Diabetes Cardiovascular History: Reports: Hx Hypertension Denies: Hx Congestive Heart Failure, Hx Myocardial Infarction, Hx Pacemaker/ ICD History: Denies: Hx Renal Disease Sensory History: Denies: Hx Contacts or Glasses, Hx Hearing Aid Opthamlomology History: Denies: Hx Contacts or Glasses Psychiatric History: Denies: Hx Panic Disorder - Cancer History Hx Chemotherapy: No Hx Radiation Therapy: No - Surgical History Surgery Procedure, Year, and Place: cholecystectomy and ERCP; uterine ablasion Infectious Disease History: No Infectious Disease History: Denies: Traveled Outside the [place] in Last 30 Days - Family History Known Family History: Positive: Hypertension - Brother - Social History Occupation: Employed Full-time Alcohol Use: Occasionally Hx Substance Use: No Substance Use Type: Reports: None Hx Tobacco Use: No Smoking Status (MU): Never Smoked Tobacco Review of Systems Constitutional: Negative Positive: Other - bitten by bat left lower leg last month All Other Systems Reviewed And Are Negative: Yes Physical Exam Triage Information Reviewed: Yes Vital Signs On Initial Exam: Initial Vitals Temp Pulse Resp BP Pulse Ox 98 F 58 20 141/87 97 03/19/19 12:30 03/19/19 12:30 03/19/19 12:30 03/19/19 12:30 03/19/19 12:30 Vital Signs Reviewed: Yes Appearance: Positive: Well-Appearing, No Pain Distress Skin: Positive: Warm, Skin Color Reflects Adequate Perfusion Head/Face: Positive: Normal Head/Face Inspection Eyes: Positive: EOMI, FERDINAND ENT: Positive: Normal ENT inspection Neck: Positive: Nontender Respiratory/Lung Sounds: Positive: Clear to Auscultation, Breath Sounds Present Cardiovascular: Positive: RRR Abdomen Description: Negative: Distended Musculoskeletal: Positive: Strength/ROM Intact Neurological: Positive: Sensory/Motor Intact, Alert, Oriented to Person Place, Time, CN Intact II-III, Normal Gait, Speech Normal Psychiatric: Positive: Normal Diagnostics - Vital Signs Vital Signs Temp Pulse Resp BP Pulse Ox 03/19/19 12:30 98 F 58 20 141/87 97 - Laboratory Lab Statement: Any lab studies that have been ordered have been reviewed, and results considered in the medical decision making process. Course/Dx - Course Course Of Treatment: 53 y old with follow up for rabies vaccines. She will continue to follow with primary and ID doctor. - Clinical Impression Provider Diagnoses: Rabies, need for prophylactic vaccination against, Hypertension Discharge - Sign-Out/Discharge Documenting (check all that apply): Patient Departure All imaging exams completed and their final reports reviewed: No Studies - Discharge Plan Condition: Good Disposition: HOME Patient Education Materials: Rabies Vaccine (By injection), Hypertension (ED) Referrals: Bharat Rinaldi MD [Primary Care Provider] - 3 Days - Billing Disposition and Condition Condition: GOOD Disposition: Home
--- OUTSIDE RECORDS SUMMARY | 2019-03-19 14:31 | XMS REPORT | Continuity of Care Document ---
:1965 External Reference #:[id number] Author Name Bharat Rinaldi M.D. Address [address] [place] [address] Care Team Providers Name Role Phone Bharat Rinaldi MD - Family Medicine Care Team Information Supervisor [employer] [phone] Apple Barrera - Rheumatology Care Team Information Supervisor [employer] Jessica Coronado - Pulmonary Disease Care Team Information Supervisor [employer] Myles Gomez DO - Gastroenterology Care Team Information Supervisor [employer] [phone] Problems Active Problems Provider Date Essential hypertension Zac Gayle M.D. Onset: 08/11/2007 Rheumatoid arthritis Zac Gayle M.D. Onset: 08/11/2007 Arthropathy Bharat Rinaldi M.D. Onset: 11/15/2011 Mitral valve disorder Bharat Rinaldi M.D. Onset: 02/17/2016 Obstructive sleep apnea syndrome Bharat Rinaldi M.D. Onset: 07/12/2016 Gastroesophageal reflux disease Bharat Rinaldi M.D. Onset: 04/05/2017 Hypothyroidism Bharat Rinaldi M.D. Onset: 04/20/2017 Social History Type Date Description Comments Sex Unknown Tobacco Use Start: Unknown Never Smoked Cigarettes Allergies, Adverse Reactions, Alerts Description No Known Drug Allergies Medications Active Medications SIG Qnty Indications Ordering Date Provider Note For Work should be out of [place] 03/16/2019 work for one César Rinaldi month until 04/20/2019 for general malaise Zolpidem Tartrate 1 by mouth every 20tabs Bharat FBart 03/16/2019 5mg night at bedtime César Rinaldi Tablets as needed Ondansetron HCL take 1 tablet by 15tabs Bharat FBart 02/27/2018 4mg mouth every 4 César Rinaldi Tablets hours as needed for nausea/vomiting Isradipine Take Two 180caps I10 Bharat FBart 12/19/2017 2.5mg Capsules Capsules By César Rinaldi Mouth Every Day Levothyroxine Sodium Take One Tablet 90tabs Bharat FBart 04/20/2017 Daily. César Rinaldi 25mcg Tablets Omeprazole 1 by mouth every Unknown 40mg Capsules day DR Grier mix 1 capful in Unknown 3350NF Powder glass of water and drink everyday History Medications Note For Work should be out of work Bharat Rinaldi M.D. 03/11/2019 - 03/16/2019 for one month until 04/20/2019 Immunizations CPT Code Status Date Vaccine Lot # [id number] Given 05/26/2018 Influenza Vac, Quad[place], [place] [id number] Given 05/30/2016 Influenza Vac, Quadrivalent, Slit Virus, Im Vital Signs Date Vital Result Comment 03/16/2019 1:26pm BP Systolic 120 mmHg BP Diastolic 78 mmHg Heart Rate 82 /min Body Temperature 97.5 F Height 65.5 inches 5'5.50" measured Weight 188.00 lb BMI (Body Mass Index) 30.8 kg/m2 02/27/2019 3:46pm BP Systolic 150 mmHg BP Diastolic 96 mmHg Heart Rate 88 /min Body Temperature 98.4 F Respiratory Rate 12 /min Height 65.5 inches 5'5.50" measured Weight 187.00 lb BMI (Body Mass Index) 30.6 kg/m2 Results Test Date Facility Test Result H/L Range Note Laboratory test 03/16/2019 [facility]) Free T4 <pending> 0.75- 1.54 finding TSH <pending> 0.5-5.0 Laboratory test 03/16/2019 [facility] C Reactive 6.13 mg/L N <8.01 1 finding Protein Laboratory test 03/06/2019 [facility]) Vitamin D25 47 30-100 finding Vitamin B-12 1050 pg/mL 230-1050 Comprehensive Metabolic 03/06/2019 [facility] Lu[facility]) Sodium 129 mEq/L Low 134-149 2 Prof Potassium 2.9 mEq/L Low 3.6-5.5 3 Chloride 86 mEq/L Low 94-112 Carbon Dioxide 31 mEq/L 21-32 Glucose 181 mg/dL High 70-105 BUN 10 mg/dL 6-26 Creatinine 1.0 mg/dL 0.6-1.4 BUN/Creat Ratio 10.0 CALC 8.0-36.0 Calcium 9.4 mg/dL 8.6-10.2 Total Protein 7.8 g/dL 6.4-8.3 Albumin 4.7 g/dL 3.8-5.5 Globulin 3.1 g/dL 2.0-4.8 A/G Ratio 1.5 CALC 0.6-2.3 Alk. Phosphatase 84 U/L 30-110 Alt (SGPT) 103 U/L High 7-35 Ast (Sgot) 74 U/L High 5-34 Total Bilirubin 1.2 mg/dL 0.2-1.3 GFR Non- >60 ml/min/1.73m^ >=60 GFR >60 ml/min/1.73m^ >=60 Laboratory test finding 03/06/2019 [facility] Maria Luisa([facility]) TSH 2.01 mIU/L 0.50-6.00 CBC Electronic a 03/06/2019 [facility] Maria Luisa([facility]) WBC 9.6 x10^3/UL 4.0- 10.0 RBC 4.93 x10^6/UL 3.93-6.00 HGB 14.8 g/dL 12.0-17.0 HCT 41 % 35-50 MCV 83.4 fL 80.0-95.0 MCH 30.0 pg 25.6-32.2 MCHC 36.0 g/dL 32.2-36.0 RDW-CV 12.2 % 11.6-14.4 PLT 266 x10^3/UL 163-400 MPV 12.5 fL High 9.4-12.4 Nina# 7.25 x10^3/UL High 1.56-6.13 Lymph# 1.74 x10^3/UL 1.18-3.74 [place]# 0.59 x10^3/UL 0.24-0.82 Eos # 0.0 x10^3/UL 0.0-0.5 Baso # 0.03 x10^3/UL 0.01-0.08 Nina% 75.3 % High 34.0-70.0 Lymph % 18.1 % Low 20.0-52.0 [place]% 6.1 % 5.0-12.0 Eos% 0.1 % Low 0.7-7.0 Baso% 0.3 % 0.1-1.2 Lyme Disease AB Immunoblot WB 03/06/2019 [facility] IgG Immunoblot Negative Negative IgG detected against None kDa IgM Immunoblot Negative Negative IgM detected against None kDa Lyme Disease Interpretation See Comment 4 Protein 03/06/2019 [facility] Total Protein(Pep) 8.1 g/dL Abnormal 6.3 - 7.9 Electrophoresis Albumin 3.7 g/dL 3.4-4.7 Alpha-1 Globulin 0.3 g/dL 0.1-0.3 Alpha-2 Globulin 1.2 g/dL Abnormal 0.6-1.0 Beta Globulin 1.4 g/dL Abnormal 0.7-1.2 Gamma Globulin 1.5 g/dL 0.6-1.6 Albumin/Globulin Ratio 0.82 Impression See Comment 5 Laboratory test 03/06/2019 [facility] C Reactive Protein 17.29 mg/L High <8.01 6 finding Laboratory test 02/21/2019 [facility] Rapid Strep A Negative Negative 7 finding Molecular 1 1 gold top sst tube sent [id number] RESULTS VERIFIED BY REPEAT ANALYSIS 3 RESULTS VERIFIED BY REPEAT ANALYSIS 4 Specific serologic response to B. burgdorferi infection is not detected, but cannot rule out early infection during which low or undetectable antibody levels to B. burgdorferi may be present. If clinically indicated, a new serum specimen should be submitted in 7-14 days. ADDITIONAL INFORMATION Per CDC criteria, the Lyme IgG Immunoblot is interpreted as positive if IgG-class antibodies are detected to >=5 B. burgdorferi proteins, and the Lyme IgM Immunoblot is interpreted as positive if IgM-class antibodies are detected to >=2 B. burgdorferi proteins. Immunoblot patterns not meeting these criteria should not be interpreted as positive. Epitopes from certain B. burgdorferi proteins (e.g., p41) are conserved across other bacteria, which may lead to the detection of IgM- and/or IgG-class antibodies on the Lyme disease immunoblots in patients without Lyme disease. Immunoblot should only be ordered on specimens that are positive or equivocal by a FDA-licensed Lyme disease antibody screening test (e.g., EIA). Results of the Lyme IgM immunoblot should not be considered in patients with >=30 days of symptoms. Test Performed by: [address] [id number] RESULT: No apparent monoclonal protein on serum electrophoresis. Test Performed by: [facility] - [address] [id number] 2 sst 7 Business Liaison Officer: [id number] Procedures Date Code Description Status 07/30/2017 [id number] Mammogram Completed 03/30/2016 [id number] Colonoscopy Completed 11/23/2015 [id number] Mammogram Completed 03/19/2008 [id number] Mammogram Completed Medical Devices Description No Information Available Encounters Type Date Location Provider Dx Diagnosis Office Visit 02/27/2019 [facility] Office Bharat Rinaldi R20.2 Paresthesia of skin 2:40p M.D. Office Visit 02/25/2019 [facility] Office Karol Mares20.3 Contact with and 9:00a JEMMA Hampton (suspected) exposure to rabies F43.0 Acute stress reaction Office Visit 02/19/2019 11:00a [facility] Office Vishnu Pierce20.3 Contact with and [employer] WORK[employer] (suspected) exposure to rabies Assessments Date Code Description Provider 03/16/2019 R53.81 Other malaise Bharat Rinaldi M.D. 03/06/2019 R20.2 Paresthesia of skin Bharat Rinaldi M.D. 03/06/2019 E55.9 Vitamin D deficiency, unspecified Bharat Rinaldi M.D. 02/27/2019 R20.2 Paresthesia of skin Bharat Rinaldi M.D. 02/25/2019 Z20.3 Contact with and (suspected) exposure to Karol Hampton NP rabies 02/25/2019 F43.0 Acute stress reaction Karol Hampton NP 02/19/2019 Z20.3 Contact with and (suspected) exposure to HORTENCIA Pierce rabies Plan of Treatment Future Appointment(s):03/31/2019 2:20 pm - Bharat Rinaldi M.D. at [facility]303/16/2019 - Bharat Rinladi M.D.R53.81 Other malaiseComments:Patient will return in 3 weeks for followup. Refer to ophthalmology for the patient's concern about changes in her eyes with conjunctivitis and a slowly reacting left pupil. She remains convinced she has rabies though infectious disease at [facility] does not believe that's the case and the experts in [place] do not believe that that is the case. Repeat lab work. Continue present dose of DynaCirc2.5 mg and will discontinue Aldactazide given her electrolyte changesAllNew Medication:Note For Work - should be out of work for one month until 04/20/2019 for general malaiseZolpidem Tartrate 5 mg - 1 by mouth every night at bedtime as neededComments:Medication Management Patient Understands medications she's taking? Yes No Are there Barriers to Adherence? Yes No Has the patient been asked about herbal supplements and therapies, and OTC meds? Yes No Functional Status Description No Information Available Mental Status Description No Information Available Referrals Refer to Reason for Referral Status Appt Alejandro Meraz conjunctivitis , pupil constriction, jw Created [address] [place] [address] [phone] [facility] CONS[facility] REGARDING RABIES Scheduled 2018 EXPOSURE [facility] [phone] Ravi Black MD EMG left lower extremities jw Scheduled 03/03/[address] [place] [address] [phone] Patrick Loomis MD Consult and treat. LT Sent [address] [facility] [place] [place] [address] [phone]
== END 2019-03-19 13:15 | disposition home or self-care (01) ==
LOC: UCEAST 12:19
DX: Z29.14 Encounter for prophylactic rabies immune globulin (principal)
CPT/HCPCS: 90471; 90675; 99211; G0463